=== PATIENT | male | born 1975 | race Caucasian/White ===

== ENCOUNTER 2016-06-04 17:38 | Emergency (ER) | payer OTHER ==
[2016-06-04] MEDS ORDERED: Albuterol/Ipratropium NEB.SOL* Albuterol 2.5 MG/Ipratropium 0.5 MG 3 ML ONE (17:58)
[2016-06-04] MEDS ORDERED: Albuterol/Ipratropium NEB.SOL* Albuterol 2.5 MG/Ipratropium 0.5 MG 3 ML INH ONE (18:09)
--- NOTE | 2016-06-04 18:36 | UC ---
Respiratory Complaint HPI - HPI Summary HPI Summary: The patient comes in today for: 1. Shortness of breath: Onset: 2-3 days ago. Palliative/provocative: Inhaler he had at home (albuterol) helped. Quality: Cough, barky Region: Lungs Severity: Just before he came in dyspnea was 7/10 but now after nebulizer 4/10 Time: Constant. Associated symptoms: Chest pain: None. Dyspnea: Present. Lung disease: Bronchitis, but he denies any asthma or emphysema. HE was given albuterol inhaler back in February of 2016. He had a bronchitis and he got a "Z-pack and albuterol inhaler." He got a breathing treatment also. He did not get any oxygen. Heart disease, but message from the nurse was that he had cardiomyopathy. Sleep apnea: Present. He has not seen anyone for this "not for a while." He has not been on any treatment (i.e. CPAP) at home. He has not had any echocardiogram. Regular PCP: Dr. Guerrero. His last visit was in November. He has an appointment on the of this month. 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 He denies seeing any other providers such as specialists. Cough production: Yellow green. Rhinitis: Yellow/green Upper tooth pain: None Sinus pressure: Frontal and maxillary. Oxygen at home: None. * - History of Current Complaint Chief Complaint: UCRespiratory Stated Complaint: URI Time Seen by Provider: 06/04/16 18:20 Hx Obtained From: Patient, Family/Emissions Testing And Repair Technician - Allergies/Home Medications Allergies/Adverse Reactions: Allergies Allergy/AdvReac Type Severity Reaction Status Date / Time MARGIE Allergy Severe Swelling Uncoded 06/04/16 17:48 PMH/Surg Hx/FS Hx/Imm Hx Previously Healthy: No Endocrine History Of: Reports: Diabetes - DM x 3 years. On Rx, FBS 75-110, Denies: Thyroid Disease Cardiovascular History Of: Denies: Cardiac Disorders, Hypertension, Pacemaker/ICD, Myocardial Infarction , Congestive Heart Failure, Atrial Fibrillation, Deep Vein Thrombosis, Bleeding Disorders Respiratory History Of: Reports: Bronchitis - Last dx Feb--used albuteral MDI then, but not after. Denies: COPD, Asthma GI/ History Of: Denies: Gastroesophageal Reflux, Ulcer, Gastrointestinal Bleed, Gall Bladder Disease, Kidney Stones, Diverticulitis, Renal Disease, Urosepsis Neurological History Of: Denies: TIA, CVA, Dementia, Seizures, Migraine Psychological History Of: Reports: Depression Denies: Anxiety, Bipolar Disorder, Schizophrenia, Post Traumatic Stress Disorder Cancer History Of: Denies: Lung Cancer, Colorectal Cancer, Breast Cancer, Prostate Cancer, Cervical Cancer Other History Of: Anticoagulant Therapy Negative For: HIV, Hepatitis B, Hepatitis C - Surgical History Surgical History: None - Family History Known Family History: Positive: Cardiac Disease, Hypertension, Diabetes, Seizure Disorder - Social History Occupation: Employed Full-time Alcohol Use: Rare Substance Use Type: Marijuana Substance Use Comment - Amount & Last Used: 11/22/13 Smoking Status (MU): Current Every Day Smoker Type: Cigarettes Amount Used/How Often: 1 PPD Household Exposure Type: Cigarettes - Immunization History Most Recent Influenza Vaccination: never Most Recent Tetanus Shot: doesn't remember Most Recent Pneumonia Vaccination: never Review of Systems Constitutional: Fever - He c/o fever, 100.2 at home. Skin: Negative Eyes: Negative ENT: Nasal Discharge Respiratory: Shortness Of Breath, Cough Gastrointestinal: Diarrhea - Diarrhea today: two stools today, mucous in the first one. Genitourinary: Negative All Other Systems Reviewed And Are Negative: Yes Physical Exam Triage Information Reviewed: Yes Appearance: Well-Appearing, Well-Nourished, Obese Vital Signs: Initial Vital Signs Temp 97.9 F 06/04/16 17:43 Pulse 79 06/04/16 17:43 Resp 24 06/04/16 17:43 BP 136/89 06/04/16 17:43 Pulse Ox 94 06/04/16 17:43 Vital Signs Reviewed: Yes Eyes: Positive: Conjunctiva Clear ENT: Positive: Hearing grossly normal, Pharyngeal erythema, Other: - Mallampati score: 2. Negative: Nasal congestion, Nasal drainage, TM bulging, TM dull, TM red, Tonsillar swelling, Tonsillar exudate Dental: Negative: Gross Decay/Caries @, Dental Fracture @ Neck: Positive: Supple, Nontender, No Lymphadenopathy. Negative: Nuchal Rigidity Respiratory: Positive: Chest non-tender, No respiratory distress, No accessory muscle use - It was difficult to assess accessory muscle use due to increased adipose tissue overlying chest wall., Wheezing - Scattered, and end expiratory.. Negative: Crackles Cardiovascular: Positive: RRR, No Murmur Abdomen Description: Positive: Nontender, No Organomegaly, Soft. Negative: Distended, Guarding Musculoskeletal: Positive: Strength Intact, ROM Intact Neurological: Positive: Alert, Muscle Tone Normal Psychological: Positive: Age Appropriate Behavior, Consolable Skin: Positive: Other - He has hyperpigmented, and cyanotic lower, edematous legs, but he states that this is his normal.. Negative: rashes UC Diagnostic Evaluation - Laboratory O2 Sat by Pulse Oximetry: 94 - Radiology Xray Interpretation: Positive (See Comments) - MILD PULMONARY INTERSTITIAL EDEMA Radiology Interpretation Completed By: Radiologist Respiratory Course/Dx - Course Course Of Treatment: Patient states that he feels much better after his DuoNeb treatment and that he feels well enough to go home. However, I told him I was concerned about his breathing and lung sounds and suggested a CXR. The radiologist read it as mild pulmonary edema. I mentioned this to the patient and that a simple upper respiratory infection with bronchospasm should not have pulmonary edema found on CXR. And therefore, I suggested that he go to the ER for a more in-depth evaluation. However, he did not want to do that tonight and said that he would consider it in the AM. He did want an antibiotic and bronchodilator, steroid inhaler and antibiotics. - Differential Dx/Diagnosis Provider Diagnoses: Dyspnea. Mild pulmonary edema. bronchospasm Discharge - Discharge Plan Condition: Stable Disposition: AGAINST MEDICAL ADVICE Patient Education Materials: Heart Failure (ED), Dyspnea (ED), Bronchospasm (ED ) Forms: *Work Release Referrals: Abdelrahman ROE,Cehvy Garcia [Primary Care Provider] - As Soon As Possible (If you are not going to the ER at this time, please see your primary care provider as soon as you can. If you get worse, please re-consider going to the ER. )
[2016-06-04 19:22] VITALS: BP 120/78
--- NOTE | 2016-06-04 19:28 | RAD ---
HISTORY: Shortness of breath, history of cardiomyopathy COMPARISONS: November 26, 2013 VIEWS: 2: Frontal dual-energy and lateral views of the chest. FINDINGS: CARDIOMEDIASTINAL SILHOUETTE: The cardiomediastinal silhouette is normal. LUCY: The lucy are normal. PLEURA: The costophrenic angles are sharp. No pleural abnormalities are noted. LUNG PARENCHYMA: There is mild coarse reticular pattern with prominence of the central pulmonary vasculature. ABDOMEN: The upper abdomen is clear. There is no subphrenic gas. BONES AND SOFT TISSUES: No bone or soft tissue abnormalities are noted. OTHER: None. IMPRESSION: MILD PULMONARY INTERSTITIAL EDEMA
--- NOTE | 2016-06-05 14:47 | UC ---
Progress - Progress Note Progress Note: The patient was called today to see how well he was doing. He did not answer my call, but a message was left that if he is having any problems or other issues, he is welcome to come back to see us.
== END 2016-06-04 20:02 | disposition left against medical advice (07) ==
LOC: UCEAST 17:38
DX: R06.00 Dyspnea, unspecified (principal); J81.1 Chronic pulmonary edema; J98.01 Acute bronchospasm; F17.210 Nicotine dependence, cigarettes, uncomplicated
CPT/HCPCS: 71020; 93005; 99212; A9270-GY; G0463

== ENCOUNTER 2016-09-15 22:01 | Emergency (ER) | payer OTHER ==
[2016-09-15 22:09] VITALS: BP 169/97
[2016-09-15] MEDS ORDERED: Clindamycin 900 MG IVPREMIX(* 900 MG/50 ML SDV IV ONE (23:18)
[2016-09-15] MEDS ORDERED: HYDROcodone/ACETAMIN 5-325 MG* 1 TAB PO ONE (23:18)
[2016-09-15 23:40] LABS: Hematocrit 48 % (42-52); Hemoglobin 16.5 g/dl (14.0-18.0); Mean Corpuscular HGB Conc 34 g/dl (31-36); Mean Corpuscular Hemoglobin 29 pg (27-31); Mean Corpuscular Volume 85 fL (80-94); Mean Platelet Volume 8 um3 (7.4-10.4); Red Cell Distribution Width 14 % (10.5-15); White Blood Count 11.9 10^3/ul (3.5-10.8)
[2016-09-15 23:58] LABS: Albumin 3.5 g/dL (3.2-5.2); BUN/Creatinine Ratio 12.9 (8-20); EGFR Non-African American 123.7 (>60); Globulin 3.2 g/dL (2-4); Potassium 3.8 mmol/L (3.5-5.0); Total Bilirubin 0.7 mg/dL (0.2-1.0); Total Protein 6.7 g/dL (6.4-8.9)
[2016-09-16] MEDS ORDERED: Insulin REGULAR(*) 1 UNITS UNIT SUBCUT ONE (00:49)
--- NOTE | 2016-09-16 06:46 | ED ---
Sherine Hummel Anna, scribed for Reji Park MD on 09/15/16 at 2300 . GI/ HPI - HPI Summary HPI Summary: Patient is a 41 y/o male coming to [facility] presenting with the gradual onset of left-sided groin pain that began two days ago. He reports a sore area which began looking like a pimple but has grown in size and worsened in pain. He describes the severity of the pain as 9/10. Denies known hernias. He does not report digging in or otherwise bothering the sore. He reports feeling warm and having some diaphoresis and nausea. Denies emesis. He put Abx cream on the area but did not attempt drainage. The area was not draining when he took his shower this morning. The pain is exacerbated by movement. His history is significant for DM. Patient medications were reviewed this visit. - History of Current Complaint Chief Complaint: EDGeneral Time Seen by Provider: 09/15/16 22:16 Stated Complaint: INFECTION BY PELVIS/ GENERAL Hx Obtained From: Patient, Family/Locomotive Driver - accompanied by Onset/Duration: Started Days Ago, Still Present Pain Intensity: 9 - Allergy/Home Medications Allergies/Adverse Reactions: Allergies Allergy/AdvReac Type Severity Reaction Status Date / Time BURDOCK Allergy Severe Swelling Uncoded 06/04/16 17:48 PMH/Surg Hx/FS Hx/Imm Hx Endocrine/Hematology History: Reports: Hx Anticoagulant Therapy, Hx Diabetes - DM x 3 years. On Rx, FBS 75-110, Denies: Hx Thyroid Disease Cardiovascular History: Denies: Hx Congestive Heart Failure, Hx Deep Vein Thrombosis, Hx Hypertension , Hx Myocardial Infarction, Hx Pacemaker/ICD Respiratory History: Reports: Hx Sleep Apnea Denies: Hx Asthma, Hx Chronic Obstructive Pulmonary Disease (COPD), Hx Lung Cancer GI History: Denies: Hx Gall Bladder Disease, Hx Gastrointestinal Bleed, Hx Ulcer, Hx Urosepsis History: Denies: Hx Kidney Stones, Hx Renal Disease Musculoskeletal History: Reports: Hx Back Problems Neurological History: Denies: Hx Dementia, Hx Migraine, Hx Seizures, Hx Transient Ischemic Attacks (TIA) Psychiatric History: Reports: Hx Depression Denies: Hx Anxiety, Hx Schizophrenia, Hx Bipolar Disorder - Immunization History Date of Tetanus Vaccine: utd Date of Influenza Vaccine: none Infectious Disease History: No Infectious Disease History: Denies: Hx Hepatitis, Hx Human Immunodeficiency Virus (HIV), Traveled Outside the [place] in Last 30 Days - Family History Known Family History: Positive: Cardiac Disease, Hypertension, Diabetes, Respiratory Disease, Seizure Disorder - Social History Lives: With Family Alcohol Use: Rare Substance Use Type: Reports: Marijuana Substance Use Comment - Amount & Last Used: 09/14/16 Hx Tobacco Use: Yes Smoking Status (MU): Current Every Day Smoker Type: Cigarettes Amount Used/How Often: 1 PPD Review of Systems Positive: Skin Diaphoresis, Other - feeling warm Negative: Erythema Negative: Sore Throat Negative: Chest Pain Negative: Shortness Of Breath, Cough Positive: Nausea. Negative: Abdominal Pain, Vomiting, Diarrhea Positive: pain. Negative: dysuria, hematuria Negative: Myalgia, Edema Negative: Rash Neurological: Other - Denies dizziness All Other Systems Reviewed And Are Negative: Yes Physical Exam - Summary Physical Exam Summary: Constitutional: Well-developed, Well-nourished, Alert. (-) Distressed Skin: Fluctuant area to the left of his synthesis pubis. Warm, Dry HENT: Normocephalic; Atraumatic Eyes: Conjunctiva normal Neck: Musculoskeletal ROM normal neck. (-) JVD, (-) Stridor, (-) Tracheal deviation Cardio: Rhythm regular, rate normal, Heart sounds normal; Intact distal pulses; The pedal pulses are 2+ and symmetric. Radial pulses are 2+ and symmetric. (-) Murmur Pulmonary/Chest wall: Effort normal. (-) Respiratory distress, (-) Wheezes, (-) Rales Abd: Soft, (-) Tenderness, (-) Distension, (-) Guarding, (-) Rebound Musculoskeletal: (-) Edema Lymph: (-) Cervical adenopathy Neuro: Alert, Oriented x3 Psych: Mood and affect Normal Triage Information Reviewed: Yes Vital Signs On Initial Exam: Initial Vitals Temp Pulse Resp BP Pulse Ox 99.5 F 105 20 169/97 97 09/15/16 22:04 09/15/16 22:04 09/15/16 22:04 09/15/16 22:04 09/15/16 22:04 Vital Signs Reviewed: Yes - [place] Coma Scale Coma Scale Total: 15 Procedures - Incision and Drainage Site: left of synthesis pubis - moderate pus Anesthesia: Local Instrument(s): Scalpel - 11 blade Packing: Other - 1/4 inch packing Diagnostics - Vital Signs Vital Signs Temp Pulse Resp BP Pulse Ox 09/15/16 22:13 99.5 F 105 18 169/97 95 09/15/16 22:04 99.5 F 105 20 169/97 97 - Laboratory Result Diagrams: 09/15/16 23:25 09/15/16 23:25 Lab Statement: Any lab studies that have been ordered have been reviewed, and results considered in the medical decision making process. GIGU Course/Dx - Course Assessment/Plan: Patient is a 41 y/o male coming to [facility] presenting with the gradual onset of left-sided groin pain that began two days ago. Incision and drainage was performed. Labs reveal WBC of 11.9 and glucose of 330. Patient will be discharged home with a prescription for Clindamycin and Tramadol. Patient and family are agreeable. - Diagnoses Provider Diagnoses: Groin abscess, Hyperglycemia Discharge - Discharge Plan Condition: Stable Disposition: HOME Prescriptions: Clindamycin CAP* [Cleocin 150 MG CAP*] 300 mg PO QID #40 cap traMADol TAB* [Ultram*] 25 mg PO Q6HR PRN #10 tab MDD 4 PRN Reason: Pain - Moderate To Severe Patient Education Materials: Clindamycin (By mouth), Tramadol (By mouth), Abscess (ED), Diabetic Hyperglycemia (ED) Referrals: Chevy Quick MD [Primary Care Provider] - Additional Instructions: Follow up with primary care provider within 48 hours. Check blood sugar levels three times a day. RETURN TO THE EMERGENCY DEPARTMENT FOR CHANGING OR WORSENING SYMPTOMS. The documentation as recorded by the Sherine maurer Anna accurately reflects the service I personally performed and the decisions made by Xavier calderon Jerry, MD.
== END 2016-09-16 01:51 | disposition home or self-care (01) ==
LOC: ED 22:01
DX: L02.214 Cutaneous abscess of groin (principal); E11.65 Type 2 diabetes mellitus with hyperglycemia; Z79.01 Long term (current) use of anticoagulants; F17.210 Nicotine dependence, cigarettes, uncomplicated
CPT/HCPCS: 10060; 36415; 80053; 83605; 85025; 85610; 85730; 87040; 96372; 96374; 99282

== ENCOUNTER 2016-09-19 12:03 | Emergency (ER) | payer OTHER | END 2016-09-19 13:13 | disposition left against medical advice (07) | LOC: UCEAST 12:03 | DX: T14.8 Other injury of unspecified body region (principal); X58.XXXD Exposure to other specified factors, subsequent encounter; Z53.21 Procedure and treatment not carried out due to patient leaving prior to being seen by health care provider ==

== ENCOUNTER 2017-06-10 18:59 | Emergency (ER) | payer OTHER ==
--- NOTE | 2017-06-10 21:29 | RAD ---
INDICATION: Chest pain COMPARISON: Chest x-ray dated June 04, 2016 TECHNIQUE: Single AP view of the chest was obtained. FINDINGS: The heart and mediastinum exhibit normal size and contour. Similar to the prior chest x-ray there is fullness of the pulmonary vasculature with diffuse mild reticulonodular density. Visualized bones are normal for the patient's age. IMPRESSION: DEPENDING ON THE CLINICAL SETTING CHEST X-RAY FINDINGS COULD BE SEEN WITH MILD PULMONARY EDEMA OR INCREASED PARENCHYMAL DENSITY RELATED TO VIRAL PNEUMONIA.
[2017-06-10 21:31] LABS: ABS Basophils 0.1 10^3/ul (0-0.2); ABS Eosinophils 0.2 10^3/ul (0-0.6); ABS Lymphocytes 2.8 10^3/ul (1.0-4.8); ABS Monocytes 0.6 10^3/ul (0-0.8); ABS Neutrophils 6.7 10^3/ul (1.5-7.7); ABS Nucleated RBC 0 10^3/ul; Eosinophil % 2.1 % (0-6); Hematocrit 49 % (42-52); Hemoglobin 16.7 g/dl (14.0-18.0); Lymphocyte % 27.1 % (25-47); Mean Corpuscular HGB Conc 34 g/dl (31-36); Mean Corpuscular Hemoglobin 30 pg (27-31); Mean Corpuscular Volume 86 fL (80-94); Mean Platelet Volume 8 um3 (7.4-10.4); Nucleated Red Blood Cells % 0.1; Platelet Count 279 10^3/ul (150-450); Red Blood Count 5.65 10^6/ul (4.0-5.4); Red Cell Distribution Width 14 % (10.5-15); White Blood Count 10.5 10^3/ul (3.5-10.8)
[2017-06-10 21:48] LABS: EGFR Non-African American 136.5 (>60)
[2017-06-10 21:58] LABS: INR 0.87 (0.77-1.02)
[2017-06-10] MEDS ORDERED: Ketorolac INJ* 60 MG/2 ML VIAL IM ONE (23:02)
[2017-06-10] MEDS ORDERED: oxyCODONE/Acetamin 5/325 MG* TAB PO ONE (23:03)
[2017-06-10] MEDS ORDERED: Insulin REGULAR(*) 1 UNITS UNIT SUBCUT ONE (23:03)
--- NOTE | 2017-06-11 00:14 | ED ---
Avinash Hummel Thomas, scribed for Leland Trevizo MD on 06/10/17 at 2324 . HPI Chest Pain - HPI Summary HPI Summary: The patient is a 42 year old male presenting with chest pain that has been increasing over the last two weeks. The pain radiates to his neck. He describes a sensation of a pulled muscle. The pain is worse when he moves and breathes deeply. He reports he is a little short of breath. He denies any known trauma. - History of Current Complaint Chief Complaint: EDChestWallPain Time Seen by Provider: 06/10/17 22:53 Hx Obtained From: Patient Onset/Duration: Started Weeks Ago - 2, Atraumatic, Still Present Timing: Constant Initial Severity: Mild Current Severity: Severe Pain Intensity: 9 Pain Scale Used: 0-10 Numeric Chest Pain Radiates: Yes Chest Pain Radiates To:: Neck Aggravating Factor(s): Movement, Deep Breaths Alleviating Factor(s): Nothing Associated Signs and Symptoms: Positive: Chest Pain, Shortness of Breath - a little, Fever - Allergy/Home Medications Allergies/Adverse Reactions: Allergies Allergy/AdvReac Type Severity Reaction Status Date / Time BURDOCK Allergy Severe Swelling Uncoded 06/04/16 17:48 PMH/Surg Hx/FS Hx/Imm Hx Endocrine/Hematology History: Reports: Hx Anticoagulant Therapy, Hx Diabetes - DM x 3 years. On Rx, FBS 75-110, Denies: Hx Thyroid Disease Cardiovascular History: Denies: Hx Congestive Heart Failure, Hx Deep Vein Thrombosis, Hx Hypertension , Hx Myocardial Infarction, Hx Pacemaker/ICD Respiratory History: Reports: Hx Sleep Apnea Denies: Hx Asthma, Hx Chronic Obstructive Pulmonary Disease (COPD), Hx Lung Cancer GI History: Denies: Hx Gall Bladder Disease, Hx Gastrointestinal Bleed, Hx Ulcer, Hx Urosepsis History: Denies: Hx Kidney Stones, Hx Renal Disease Musculoskeletal History: Reports: Hx Back Problems Neurological History: Denies: Hx Dementia, Hx Migraine, Hx Seizures, Hx Transient Ischemic Attacks (TIA) Psychiatric History: Reports: Hx Depression Denies: Hx Anxiety, Hx Schizophrenia, Hx Bipolar Disorder - Immunization History Date of Tetanus Vaccine: utd Date of Influenza Vaccine: none Infectious Disease History: No Infectious Disease History: Denies: Hx Hepatitis, Hx Human Immunodeficiency Virus (HIV), Traveled Outside the [place] in Last 30 Days - Family History Known Family History: Positive: Cardiac Disease, Hypertension, Diabetes, Respiratory Disease, Seizure Disorder - Social History Alcohol Use: Rare Substance Use Type: Reports: Marijuana Substance Use Comment - Amount & Last Used: 09/14/16 Hx Tobacco Use: Yes Smoking Status (MU): Current Every Day Smoker Type: Cigarettes Amount Used/How Often: 1 PPD Review of Systems Positive: Fever Positive: Chest Pain Positive: Shortness Of Breath - a little All Other Systems Reviewed And Are Negative: Yes Physical Exam - Summary Physical Exam Summary: VITAL SIGNS: Reviewed. GENERAL: Patient is a morbidly obese MALE who is lying comfortable in the stretcher. Patient is not in any acute respiratory distress. HEAD AND FACE: No signs of trauma. No ecchymosis, hematomas or skull depressions. No sinus tenderness. EYES: PERRLA, EOMI x 2, No injected conjunctiva, no nystagmus. EARS: Hearing grossly intact. Ear canals and tympanic membranes are within normal limits. MOUTH: Oropharynx within normal limits. NECK: Supple, trachea is midline, no adenopathy, no JVD, no carotid bruit, no c- spine tenderness, neck with full ROM. CHEST: Symmetric. He has diffuse tenderness in the upper chest wall on both sides. LUNGS: Clear to auscultation bilaterally. No wheezing or crackles. CVS: Regular rate and rhythm, S1 and S2 present, no murmurs or gallops appreciated. ABDOMEN: Soft, non-tender. No signs of distention. No rebound no guarding, and no masses palpated. Bowel sounds are normal. EXTREMITIES: FROM in all major joints, no edema, no cyanosis or clubbing. NEURO: Alert and oriented x 3. No acute neurological deficits. Speech is normal and follows commands. SKIN: Dry and warm Triage Information Reviewed: Yes Vital Signs On Initial Exam: Initial Vitals Temp Pulse Resp BP Pulse Ox 100.2 F 104 16 137/66 96 06/10/17 19:02 06/10/17 19:02 06/10/17 19:02 06/10/17 19:02 06/10/17 19:02 Vital Signs Reviewed: Yes Diagnostics - Vital Signs Vital Signs Temp Pulse Resp BP Pulse Ox 06/10/17 23:19 72 16 132/80 96 06/10/17 21:03 98.7 F 94 131/66 95 06/10/17 19:02 100.2 F 104 16 137/66 96 - Laboratory Lab Results: Lab Results 06/10/17 06/10/17 06/10/17 Range/Units 21:10 21:10 21:10 WBC 10.5 (3.5-10.8) 10^3/ul RBC 5.65 H (4.0-5.4) 10^6/ul Hgb 16.7 (14.0-18.0) g/dl Hct 49 (42-52) % MCV 86 (80-94) fL MCH 30 (27-31) pg MCHC 34 (31-36) g/dl RDW 14 (10.5-15) % Plt Count 279 (150-450) 10^3/ul MPV 8 (7.4-10.4) um3 Neut % (Auto) 63.6 (38-83) % Lymph % (Auto) 27.1 (25-47) % Sequoyah % (Auto) 6.1 (1-9) % Eos % (Auto) 2.1 (0-6) % Baso % (Auto) 1.1 (0-2) % Absolute Neuts (auto) 6.7 (1.5-7.7) 10^3/ul Absolute Lymphs (auto) 2.8 (1.0-4.8) 10^3/ul Absolute Monos (auto) 0.6 (0-0.8) 10^3/ul Absolute Eos (auto) 0.2 (0-0.6) 10^3/ul Absolute Basos (auto) 0.1 (0-0.2) 10^3/ul Absolute Nucleated RBC 0 10^3/ul Nucleated RBC % 0.1 INR (Anticoag Therapy) (0.77-1.02) APTT (26.0-36.3) seconds D-Dimer, Quantitative (Less Than 230) ng/mL Sodium 133 (133-145) mmol/L Potassium 4.2 (3.5-5.0) mmol/L Chloride 100 L (101-111) mmol/L Carbon Dioxide 26 (22-32) mmol/L Anion Gap 7 (2-11) mmol/L BUN 10 (6-24) mg/dL Creatinine 0.64 L (0.67-1.17) mg/dL Est GFR ( Amer) 175.5 (>60) Est GFR (Non-Af Amer) 136.5 (>60) BUN/Creatinine Ratio 15.6 (8-20) Glucose 310 H (70-100) mg/dL Lactic Acid 2.1 H* (0.5-2.0) mmol/L Calcium 8.8 (8.6-10.3) mg/dL Magnesium 2.1 (1.9-2.7) mg/dL Total Bilirubin 0.40 (0.2-1.0) mg/dL AST 13 (13-39) U/L ALT 19 (7-52) U/L Alkaline Phosphatase 49 (34-104) U/L Total Creatine Kinase 38 (10-223) U/L Troponin I 0.00 (<0.04) ng/mL Total Protein 6.7 (6.4-8.9) g/dL Albumin 3.7 (3.2-5.2) g/dL Globulin 3.0 (2-4) g/dL Albumin/Globulin Ratio 1.2 (1-3) 06/10/17 Range/Units 21:10 WBC (3.5-10.8) 10^3/ul RBC (4.0-5.4) 10^6/ul Hgb (14.0-18.0) g/dl Hct (42-52) % MCV (80-94) fL MCH (27-31) pg MCHC (31-36) g/dl RDW (10.5-15) % Plt Count (150-450) 10^3/ul MPV (7.4-10.4) um3 Neut % (Auto) (38-83) % Lymph % (Auto) (25-47) % Sequoyah % (Auto) (1-9) % Eos % (Auto) (0-6) % Baso % (Auto) (0-2) % Absolute Neuts (auto) (1.5-7.7) 10^3/ul Absolute Lymphs (auto) (1.0-4.8) 10^3/ul Absolute Monos (auto) (0-0.8) 10^3/ul Absolute Eos (auto) (0-0.6) 10^3/ul Absolute Basos (auto) (0-0.2) 10^3/ul Absolute Nucleated RBC 10^3/ul Nucleated RBC % INR (Anticoag Therapy) 0.87 (0.77-1.02) APTT 32.4 (26.0-36.3) seconds D-Dimer, Quantitative < 200 (Less Than 230) ng/mL Sodium (133-145) mmol/L Potassium (3.5-5.0) mmol/L Chloride (101-111) mmol/L Carbon Dioxide (22-32) mmol/L Anion Gap (2-11) mmol/L BUN (6-24) mg/dL Creatinine (0.67-1.17) mg/dL Est GFR ( Amer) (>60) Est GFR (Non-Af Amer) (>60) BUN/Creatinine Ratio (8-20) Glucose (70-100) mg/dL Lactic Acid (0.5-2.0) mmol/L Calcium (8.6-10.3) mg/dL Magnesium (1.9-2.7) mg/dL Total Bilirubin (0.2-1.0) mg/dL AST (13-39) U/L ALT (7-52) U/L Alkaline Phosphatase (34-104) U/L Total Creatine Kinase (10-223) U/L Troponin I (<0.04) ng/mL Total Protein (6.4-8.9) g/dL Albumin (3.2-5.2) g/dL Globulin (2-4) g/dL Albumin/Globulin Ratio (1-3) Result Diagrams: 06/10/17 21:10 06/10/17 21:10 Lab Statement: Any lab studies that have been ordered have been reviewed, and results considered in the medical decision making process. - Radiology CXR Xray Interpretation: Positive (See Comments) - DEPENDING ON THE CLINICAL SETTING CHEST X-RAY FINDINGS COULD BE SEEN WITH MILD PULMONARY EDEMA OR INCREASED PARENCHYMAL DENSITY RELATED TO VIRAL PNEUMONIA. Dr. Trevizo has reviewed this report. Radiology Interpretation Completed By: Radiologist - EKG 19:04 Cardiac Rate: NL EKG Rhythm: Sinus Rhythm - at 97 BPM EKG Interpretation: Normal intervals, normal axis, no acute ischemic change Chest Pain Course/Dx - Course Assessment/Plan: The patient is a 42 year old male presenting with chest pain that has been increasing over the last two weeks. In the ED course, the patient was given insulin, Percocet, and Toradol. Bloodwork was obtained. EKG and CXR were obtained. The patient is discharged home with diagnosis of chest wall pain. He will follow up with primary care. - Diagnoses Provider Diagnoses: Chest wall pain Discharge - Discharge Plan Condition: Stable Disposition: HOME Prescriptions: oxyCODONE/Acetamin 5/325 MG* [Percocet 5/325 TAB*] 1 tab PO Q6H PRN #14 tab MDD 4 PRN Reason: Pain Patient Education Materials: Chest Wall Pain (ED) Referrals: Abdelrahman ROE,Chevy Garcia [Primary Care Provider] - 3 Days Additional Instructions: Follow up with your primary care physician in three days. Return to the emergency department for any new or worsening symptoms. The documentation as recorded by the Avinash maurer Thomas accurately reflects the service I personally performed and the decisions made by , Leland Trevizo MD.
[2017-06-11 02:30] VITALS: BP 136/80
== END 2017-06-11 00:55 | disposition home or self-care (01) ==
LOC: ED 18:59
DX: R07.89 Other chest pain (principal); R06.02 Shortness of breath; R50.9 Fever, unspecified; Z79.01 Long term (current) use of anticoagulants; E11.9 Type 2 diabetes mellitus without complications; F17.210 Nicotine dependence, cigarettes, uncomplicated
CPT/HCPCS: 36415; 71045; 80053; 82550; 83605; 83735; 84484; 85025; 85379; 85610; 85730; 93005; 96372; 99283; A9270-GY; J1885

== ENCOUNTER 2017-08-23 00:27 | Emergency (ER) | payer OTHER ==
[2017-08-23 02:01] LABS: Hematocrit 49 % (42-52); Hemoglobin 16.9 g/dl (14.0-18.0); Mean Corpuscular HGB Conc 35 g/dl (31-36); Mean Corpuscular Hemoglobin 29 pg (27-31); Mean Corpuscular Volume 84 fL (80-94); Mean Platelet Volume 7.7 um3 (7.4-10.4); Platelet Count 232 10^3/ul (150-450); Red Cell Distribution Width 14 % (10.5-15); White Blood Count 8.7 10^3/ul (3.5-10.8)
[2017-08-23] MEDS ORDERED: Diazepam TAB(*) 5 MG PO ONE (02:16)
[2017-08-23] MEDS ORDERED: Ketorolac INJ* 60 MG/2 ML VIAL IM ONE (02:16)
[2017-08-23 02:18] LABS: EGFR Non-African American 136.5 (>60)
[2017-08-23 02:34] LABS: Monocytes % 9 % (0-7)
[2017-08-23 02:43] LABS: Urine Appearance Clear; Urine Blood Negative (Negative); Urine Color Yellow; Urine Ketones Trace (Negative); Urine Protein Negative (Negative); Urine Specific Gravity 1.032 (1.010-1.030); Urine Urobilinogen Negative (Negative)
[2017-08-23] MEDS ORDERED: cefTRIAXone VIAL(*) 1,000 MG VIAL IM ONE (03:24)
[2017-08-23 03:50] VITALS: BP 130/69
--- NOTE | 2017-08-23 05:00 | ED ---
Andrea Hummel Rebecca, scribed for Javier Vicente MD on 08/23/17 at 0206 . Abdominal Pain/Male - HPI Summary HPI Summary: Pt is a 42 y/o M who presents to ED c/o R flank pain. Sx have been present for about 2-3 days and have been intermittent since onset. Pain is sharp and ranked 8/10 on triage. Additionally c/o nausea, difficulty urinating, and dysuria that is described as a discomfort. Denies vomiting, hematuria, and penile discharge. PMHx DM - BG has been below 150 and takes PO medication. - History of Current Complaint Chief Complaint: EDFlankPain Stated Complaint: ABD PAIN Time Seen by Provider: 08/23/17 01:58 Hx Obtained From: Patient Onset/Duration: Lasting Days - 2-3 days, Still Present Timing: Intermittent Severity Currently: Severe Pain Intensity: 8 Pain Scale Used: 0-10 Numeric Location: Flank - Right Character: Sharp Associated Signs And Symptoms: Positive: Nausea. Negative: Vomiting, Penile Discharge - Allergies/Home Medications Allergies/Adverse Reactions: Allergies Allergy/AdvReac Type Severity Reaction Status Date / Time [place] Allergy Severe Swelling Uncoded 06/04/16 17:48 PMH/Surg Hx/FS Hx/Imm Hx Endocrine/Hematology History: Reports: Hx Anticoagulant Therapy, Hx Diabetes - DM x 3 years. On Rx, FBS 75-110, Denies: Hx Thyroid Disease Cardiovascular History: Denies: Hx Congestive Heart Failure, Hx Deep Vein Thrombosis, Hx Hypertension , Hx Myocardial Infarction, Hx Pacemaker/ICD Respiratory History: Reports: Hx Sleep Apnea Denies: Hx Asthma, Hx Chronic Obstructive Pulmonary Disease (COPD), Hx Lung Cancer GI History: Denies: Hx Gall Bladder Disease, Hx Gastrointestinal Bleed, Hx Ulcer, Hx Urosepsis History: Denies: Hx Kidney Stones, Hx Renal Disease Musculoskeletal History: Reports: Hx Back Problems Neurological History: Denies: Hx Dementia, Hx Migraine, Hx Seizures, Hx Transient Ischemic Attacks (TIA) Psychiatric History: Reports: Hx Depression Denies: Hx Anxiety, Hx Schizophrenia, Hx Bipolar Disorder - Immunization History Date of Tetanus Vaccine: utd Date of Influenza Vaccine: none Infectious Disease History: No Infectious Disease History: Denies: Hx Hepatitis, Hx Human Immunodeficiency Virus (HIV), Traveled Outside the [place] in Last 30 Days - Family History Known Family History: Positive: Cardiac Disease, Hypertension, Diabetes, Respiratory Disease, Seizure Disorder - Social History Alcohol Use: Rare Substance Use Type: Reports: Marijuana Substance Use Comment - Amount & Last Used: 09/14/16 Hx Tobacco Use: Yes Smoking Status (MU): Current Every Day Smoker Type: Cigarettes Amount Used/How Often: 1 PPD Review of Systems Positive: Nausea. Negative: Vomiting Positive: dysuria, flank pain - Right, other - Difficulty urinating. Negative: discharge, hematuria All Other Systems Reviewed And Are Negative: Yes Physical Exam - Summary Physical Exam Summary: Appearance: Well appearing, no pain distress, morbidly obese Skin: warm, dry, reflects adequate perfusion Head/face: normal Eyes: EOMI, KHADAR ENT: normal Neck: supple, non-tender Respiratory: CTA, breath sounds present Cardiovascular: RRR, pulses symmetrical Abdomen: non-tender, soft Bowel Sounds: present Musculoskeletal: strength/ROM intact, tenderness to palpation in the bilateral paralumbar musculature, no CVA tenderness Neuro: normal, sensory motor intact, A&Ox3 Triage Information Reviewed: Yes Vital Signs On Initial Exam: Initial Vitals Temp Pulse Resp BP Pulse Ox 96.7 F 105 24 114/77 94 08/23/17 00:28 08/23/17 00:28 08/23/17 00:28 08/23/17 00:28 08/23/17 00:28 Vital Signs Reviewed: Yes Diagnostics - Vital Signs Vital Signs Temp Pulse Resp BP Pulse Ox 08/23/17 00:28 96.7 F 105 24 114/77 94 - Laboratory Lab Results: Lab Results 08/23/17 08/23/17 08/23/17 Range/Units 01:40 01:40 01:40 WBC 8.7 (3.5-10.8) 10^3/ul RBC 5.80 H (4.0-5.4) 10^6/ul Hgb 16.9 (14.0-18.0) g/dl Hct 49 (42-52) % MCV 84 (80-94) fL MCH 29 (27-31) pg MCHC 35 (31-36) g/dl RDW 14 (10.5-15) % Plt Count 232 (150-450) 10^3/ul MPV 7.7 (7.4-10.4) um3 Neut % (Auto) Not Reportable Lymph % (Auto) Not Reportable Weston % (Auto) Not Reportable Eos % (Auto) Not Reportable Baso % (Auto) Not Reportable Absolute Neuts (auto) Not Reportable Absolute Lymphs (auto) Not Reportable Absolute Monos (auto) Not Reportable Absolute Eos (auto) Not Reportable Absolute Basos (auto) Not Reportable Absolute Nucleated RBC Not Reportable Immature Gran % 2 (0-9) % Neutrophils % 43 (38-83) % Band Neutrophils % 2 (0-8) % Lymphocytes % 31 (25-47) % Reactive Lymphs % 14 H (0-6) % Monocytes % 9 H (0-7) % Eosinophils % 1 (0-6) % Basophils % 0 (0-2) % Nucleated RBC % Not Reportable Abs Neuts (Manual) 3.7 (1.5-7.7) 10^3/ul Abs Lymphs (Manual) 2.7 (1.0-4.8) 10^3/ul Abs Monocytes (Manual) 0.8 (0-0.8) 10^3/ul Absolute Eos (Manual) 0.1 (0-0.6) 10^3/ul Abs Basophils (Manual) 0 (0-0.2) 10^3/ul Normal RBC Morphology Normal (Normal) Sodium 134 L (139-145) mmol/L Potassium 4.2 (3.5-5.0) mmol/L Chloride 98 L (101-111) mmol/L Carbon Dioxide 24 (22-32) mmol/L Anion Gap 12 H (2-11) mmol/L BUN 10 (6-24) mg/dL Creatinine 0.64 L (0.67-1.17) mg/dL Est GFR ( Amer) 175.5 (>60) Est GFR (Non-Af Amer) 136.5 (>60) BUN/Creatinine Ratio 15.6 (8-20) Glucose 314 H (70-100) mg/dL Lactic Acid 2.7 H* (0.5-2.0) mmol/L Calcium 8.9 (8.6-10.3) mg/dL Total Bilirubin 0.70 (0.2-1.0) mg/dL AST 38 (13-39) U/L ALT 57 H (7-52) U/L Alkaline Phosphatase 67 (34-104) U/L C-Reactive Protein 41.59 H (< 5.00) mg/L Total Protein 6.8 (6.4-8.9) g/dL Albumin 3.6 (3.2-5.2) g/dL Globulin 3.2 (2-4) g/dL Albumin/Globulin Ratio 1.1 (1-3) Lipase 136 H (11.0-82.0) U/L Urine Color Urine Appearance Urine pH (5-9) Ur Specific Rubicon (1.010-1.030) Urine Protein (Negative) Urine Ketones (Negative) Urine Blood (Negative) Urine Nitrate (Negative) Urine Bilirubin (Negative) Urine Urobilinogen (Negative) Ur Leukocyte Esterase (Negative) Urine WBC (Auto) (Absent) Urine RBC (Auto) (Absent) Ur Squamous Epith Cells (Absent) Urine Bacteria (Absent) Urine Glucose (Negative) 08/23/17 Range/Units 02:30 WBC (3.5-10.8) 10^3/ul RBC (4.0-5.4) 10^6/ul Hgb (14.0-18.0) g/dl Hct (42-52) % MCV (80-94) fL MCH (27-31) pg MCHC (31-36) g/dl RDW (10.5-15) % Plt Count (150-450) 10^3/ul MPV (7.4-10.4) um3 Neut % (Auto) Lymph % (Auto) Weston % (Auto) Eos % (Auto) Baso % (Auto) Absolute Neuts (auto) Absolute Lymphs (auto) Absolute Monos (auto) Absolute Eos (auto) Absolute Basos (auto) Absolute Nucleated RBC Immature Gran % (0-9) % Neutrophils % (38-83) % Band Neutrophils % (0-8) % Lymphocytes % (25-47) % Reactive Lymphs % (0-6) % Monocytes % (0-7) % Eosinophils % (0-6) % Basophils % (0-2) % Nucleated RBC % Abs Neuts (Manual) (1.5-7.7) 10^3/ul Abs Lymphs (Manual) (1.0-4.8) 10^3/ul Abs Monocytes (Manual) (0-0.8) 10^3/ul Absolute Eos (Manual) (0-0.6) 10^3/ul Abs Basophils (Manual) (0-0.2) 10^3/ul Normal RBC Morphology (Normal) Sodium (139-145) mmol/L Potassium (3.5-5.0) mmol/L Chloride (101-111) mmol/L Carbon Dioxide (22-32) mmol/L Anion Gap (2-11) mmol/L BUN (6-24) mg/dL Creatinine (0.67-1.17) mg/dL Est GFR ( Amer) (>60) Est GFR (Non-Af Amer) (>60) BUN/Creatinine Ratio (8-20) Glucose (70-100) mg/dL Lactic Acid (0.5-2.0) mmol/L Calcium (8.6-10.3) mg/dL Total Bilirubin (0.2-1.0) mg/dL AST (13-39) U/L ALT (7-52) U/L Alkaline Phosphatase (34-104) U/L C-Reactive Protein (< 5.00) mg/L Total Protein (6.4-8.9) g/dL Albumin (3.2-5.2) g/dL Globulin (2-4) g/dL Albumin/Globulin Ratio (1-3) Lipase (11.0-82.0) U/L Urine Color Yellow Urine Appearance Clear Urine pH 5.0 (5-9) Ur Specific Rubicon 1.032 H (1.010-1.030) Urine Protein Negative (Negative) Urine Ketones Trace A (Negative) Urine Blood Negative (Negative) Urine Nitrate Negative (Negative) Urine Bilirubin Negative (Negative) Urine Urobilinogen Negative (Negative) Ur Leukocyte Esterase Trace A (Negative) Urine WBC (Auto) 3+(>20/hpf) A (Absent) Urine RBC (Auto) 2+(6-10/hpf) A (Absent) Ur Squamous Epith Cells Present A (Absent) Urine Bacteria 1+ A (Absent) Urine Glucose 3+(>=500 mg/dl) A (Negative) Result Diagrams: 08/23/17 01:40 08/23/17 01:40 Lab Statement: Any lab studies that have been ordered have been reviewed, and results considered in the medical decision making process. - CT CT Abd/Pel CT Interpretation: No Acute Changes - Enlarged fatty liver. ED physician reviewed this radiology report. CT Interpretation Completed By: Radiologist Re-Evaluation - Re-Evaluation First Eval Re-Evaluation Time: 03:45 Change: Improved Comment: Discussed results and D/C plan with the pt. Pt is doing much better with pain completely resolved. Abdominal Pain Fem Course/Dx - Course Course Of Treatment: Patient with right-sided flank pain as well as urinary symptoms. No fever or vomiting. Urine is dirty and intramuscular Rocephin was given. Pain was gone with Toradol. No evidence for stone on CT. His sugars are modestly elevated which he will follow closely with his primary care physician. Patient discharged in good condition to follow up with his primary care physician. - Diagnoses Differential Diagnosis/HQI/PQRI: Appendicitis, Gall Bladder Disease, Pancreatitis, Renal Colic, Urinary Tract Infection Provider Diagnoses: UTI (urinary tract infection), Diabetes mellitus with hyperglycemia, Morbid obesity Discharge - Sign-Out/Discharge Documenting (check all that apply): Discharge/Admit/Transfer - Discharge - Discharge Plan Condition: Good Disposition: HOME Prescriptions: Ciprofloxacin HCl [Cipro] 500 mg PO BID #10 tablet Phenazopyridine 200 mg (NF) [Pyridium 200 MG tab *] 200 mg PO TID PRN #9 tab PRN Reason: burning with urination Patient Education Materials: Urinary Tract Infection in Men (ED) Forms: *Work Release Referrals: Abdelrahman ROE,Chevy Garcia [Primary Care Provider] - Additional Instructions: Drink plenty of fluids. Call your doctor in the morning for reevaluation. Your blood sugar was high. Avoid carbohydrates and drink lots of water. See her doctor about reevaluation of the blood sugar. Return with fever, increased back pain, vomiting, worse or other concerns as discussed. Tylenol, ibuprofen as needed for discomfort. - Billing Disposition and Condition Condition: GOOD Disposition: HOME The documentation as recorded by the Andrea maurer Rebecca accurately reflects the service I personally performed and the decisions made by me, Javier Vicente MD.
--- NOTE | 2017-08-23 07:59 | RAD ---
CLINICAL HISTORY: Flank pain, urinary difficulty COMPARISON: None TECHNIQUE: Multiple contiguous axial CT scans were obtained of the abdomen and pelvis, without intravenous contrast enhancement. Coronal and sagittal multiplanar reformations are submitted for review. Oral contrast was not administered. FINDINGS: The study is limited by the lack of intravenous contrast. This limits evaluation of the solid organs and vasculature. Evaluation is also limited by patient body habitus. LUNG BASES: The lung bases are clear. LIVER: The liver is diffusely low in attenuation compared to the spleen. There are no focal hepatic parenchymal masses. The liver measures 25 cm in long axis. BILE DUCTS: There is no intrahepatic or extrahepatic biliary dilatation. GALLBLADDER: The gallbladder is normal, without pericholecystic inflammatory change. PANCREAS: The pancreas is normal, without mass or ductal dilatation. SPLEEN: Normal in size and appearance. UPPER GI TRACT: Evaluation of the gastrointestinal tract is limited by incomplete gastric distention. The upper GI tract is unremarkable. SMALL BOWEL AND MESENTERY: The small bowel is normal in contour, course, and caliber. There is no obstruction or dilatation. COLON: The colon is normal in contour, course, caliber. There is no pericolonic inflammatory change. ADRENALS: Normal bilaterally. KIDNEYS: The kidneys are normal in shape, size, contour, and axis. There is no hydronephrosis or nephrolithiasis. BLADDER: The bladder is smooth in contour. PELVIC ORGANS: The prostate gland is normal. The seminal vesicles are symmetric. AORTA: The aorta is normal. IVC: Unremarkable LYMPH NODES: There is no lymphadenopathy by size criteria. ABDOMINAL WALL: There is no evidence for abdominal wall hernia. BONES AND SOFT TISSUES: Unremarkable OTHER: None IMPRESSION: HEPATOMEGALY WITH FATTY INFILTRATION OF THE LIVER. NO APPRECIABLE HYDRONEPHROSIS OR NEPHROLITHIASIS.
== END 2017-08-23 03:48 | disposition home or self-care (01) ==
LOC: ED 00:27
DX: N39.0 Urinary tract infection, site not specified (principal); E11.65 Type 2 diabetes mellitus with hyperglycemia; E66.01 Morbid (severe) obesity due to excess calories; F32.9 Major depressive disorder, single episode, unspecified; F17.210 Nicotine dependence, cigarettes, uncomplicated; Z79.01 Long term (current) use of anticoagulants
CPT/HCPCS: 36415; 74176; 80053; 81003; 81015; 83605; 83690; 85025; 86140; 87040; 87086; 96372; 99282; A9270-GY; J0696; J1885

== ENCOUNTER → 2017-08-27 09:43 | Emergency (ER) | payer OTHER ==
[~2017-08-27 09:43] MED LIST: Aspirin 81 mg CHEW TAB* 81 MG TAB.CHEW PO ONE; Aspirin EC TAB* 81 MG TAB.EC ONE; Ciprofloxacin 400MG IVPREMIX(* 400 MG/200 ML BAG IVPB ONE; HYDROmorphone INJ* 2 MG/ML CARPUJECT SYRINGE IV SLOW PU ONE; Iodixanol* (CONTRAST) 320 MG/ML 100 ML SDV IV ONE; NS 0.9% 1000 ML* 1,000 ML IV ONE; NS 0.9% 1000 ML* 2,000 ML IV ONE; Nitroglycerin TAB 0.4 MG* 0.4 MG TAB SL ONE
[2017-08-27 11:24] LABS: Hematocrit 46 % (42-52); Hemoglobin 15.4 g/dl (14.0-18.0); Mean Corpuscular HGB Conc 34 g/dl (31-36); Mean Corpuscular Hemoglobin 29 pg (27-31); Mean Corpuscular Volume 84 fL (80-94); Mean Platelet Volume 7.7 um3 (7.4-10.4); Platelet Count 238 10^3/ul (150-450); Red Cell Distribution Width 14 % (10.5-15); White Blood Count 9.3 10^3/ul (3.5-10.8)
[2017-08-27 11:28] LABS: ABS Basophils 0.1 10^3/ul (0-0.2); ABS Eosinophils 0 10^3/ul (0-0.6); ABS Lymphocytes 5.5 10^3/ul (1.0-4.8); ABS Monocytes 0.7 10^3/ul (0-0.8)
--- NOTE | 2017-08-27 11:52 | RAD ---
INDICATION: Chest pain COMPARISON: Most recent comparison chest x-ray is dated June 10, 2017 TECHNIQUE: Single AP portable view of the chest was obtained. FINDINGS: Image quality is compromised due to the relative inferiority of a portable chest x-ray. The heart and mediastinum exhibit normal size and contour. The lungs are grossly clear. There is no evidence of a large pleural effusion. Visualized bones are normal for the patient's age. IMPRESSION: No radiographic evidence for acute cardiopulmonary abnormality on this portable chest x-ray.
[2017-08-27 12:01] LABS: Monocytes % 9 % (0-7)
--- NOTE | 2017-08-27 12:54 | RAD ---
INDICATION: Urinary tract infection. Fever. RIGHT flank pain. Shortness of breath. Diaphoretic. COMPARISON: June 25, 2017 CT. TECHNIQUE: Multidetector CT images were obtained from the lung bases to the ischial tuberosities. Evaluation of the viscera is limited without IV contrast. Multiplanar reformation. REPORT: Morbid obesity limits image quality. Unremarkable visualized inferior thorax. Fatty infiltration of the liver with focal sparing at the gallbladder fossa. No focal hepatic lesions, or CT abnormality of the gallbladder, pancreas, or spleen evident. Negative for CT abnormality of the upper GI, small bowel, or diminutive appendix. Mild diverticulosis of the sigmoid colon without acute inflammatory change. Negative for ascites, free air, or hernias. Normal adrenal glands. Unremarkable unenhanced kidneys. Negative for nephrolithiasis, hydronephrosis, focal renal lesions, or perinephric inflammatory stranding. Unremarkable nondilated ureters and partially distended urinary bladder. Symmetric seminal vesicles. Unchanged mildly prominent 1.5 cm short axis portal caval lymph node. Negative for lymphadenopathy. Normal diameter abdominal aorta and iliac arteries. Physiologic distention of the IVC. Negative for suspicious osseous lesions. IMPRESSION: 1. Negative for urolithiasis or hydronephrosis. 2. Mild sigmoid diverticulosis without findings of diverticulitis. 3. Fatty infiltration of the liver.
--- NOTE | 2017-08-27 13:03 | RAD ---
INDICATION: Chest pain. Short of breath. Evaluate for pulmonary embolus. COMPARISON: Chest x-ray August 27, 2017 TECHNIQUE: Axial source images were obtained from the thoracic inlet to the hemidiaphragms following administration of 8 cc opaque 320. The examination was repeated with a second injection of the same dose due to poor pulmonary arterial contrast opacification. CT angiographic technique was utilized. Coronal and sagittal reconstructed images were acquired. This examination is limited despite an attempt with a repeat injection. There is a stated body weight of 450 pounds which necessarily limits this examination. CHEST FINDINGS: Neck/thyroid: The visualized neck to include the thyroid appear normal. Chest wall: There are no acute abnormalities of the bony thorax or chest wall. There is no supraclavicular, infraclavicular, or axillary lymphadenopathy. Lungs : There are no pulmonary parenchymal masses or infiltrates. The pulmonary interstitium appears normal. There are no endobronchial lesions. Cardiomediastinal structures: There is no evidence of a central pulmonary embolus although this examination is considered very limited. The heart is normal in size. There is no pericardial effusion. There is no evidence of aortic aneurysm or dissection. There is no mediastinal or hilar adenopathy. The esophagus appears normal. Pleura : There are no pleural-based masses or effusions. Other: None. IMPRESSION: VERY LIMITED EXAMINATION DUE TO PATIENT SIZE. NO CENTRAL PULMONARY EMBOLUS. LUNGS CLEAR. LIMITED NATURE OF THIS EXAMINATION DISCUSSED WITH THE EMERGENCY DEPARTMENT.
[2017-08-27 14:36] VITALS: BP 115/75
[2017-08-27 14:50] LABS: Urine Appearance Clear; Urine Blood Negative (Negative); Urine Color Amber; Urine Ketones 1+ (Negative); Urine Protein Negative (Negative); Urine Specific Gravity 1.057 (1.010-1.030); Urine Urobilinogen Positive (Negative)
--- NOTE | 2017-08-27 14:52 | RAD ---
HISTORY: Left leg pain TECHNIQUE: Multiple transverse and longitudinal ultrasound images were obtained of the veins of the left lower extremity using grayscale, color Doppler, and spectral Doppler imaging with and without compression and with augmentation. FINDINGS: Evaluation is made difficult due to the patient's large body habitus. VEINS: The common femoral vein, deep femoral vein, femoral vein and popliteal vein are compressible throughout their course, with normal flow on color Doppler imaging and normal response to augmentation on spectral Doppler imaging. SOFT TISSUES: Incidentally noted is a top normal but morphologically normal-appearing right groin lymph node measuring 0.9 x 2.7 cm transverse and up to 4.8 cm in length. IMPRESSION: No sonographic evidence of deep vein thrombosis.
--- NOTE | 2017-08-27 14:53 | RAD ---
HISTORY: Right-sided abdominal pain COMPARISONS: CT dated August 27, 2017 TECHNIQUE: Multiple transverse and longitudinal ultrasound images were obtained of the right upper quadrant of the abdomen using grayscale and color Doppler imaging. FINDINGS: The study is limited by patient body habitus. LIVER: The liver is diffusely echogenic and coarse in echotexture, with decreased acoustic transmission. The liver measures 23.8 cm in long axis. There is normal hepatopedal flow of the portal vein on Doppler imaging. BILIARY TREE: There is no intrahepatic or extrahepatic biliary dilatation. The common duct measures 0.5 cm. GALLBLADDER: The gallbladder is well-visualized. There is no cholelithiasis, gallbladder wall thickening, pericholecystic fluid, or sonographic Rockwell sign. PANCREAS: The pancreas is obscured by overlying bowel gas. RIGHT KIDNEY: The right kidney is normal in shape, size, contour, and echogenicity. There is no hydronephrosis or nephrolithiasis. The right kidney measures 14.7 x 7 x 8.5 cm. AORTA AND IVC: The vessels are not well visualized. FLUID: There are no pleural effusions. There is no free fluid within the hepatorenal recess. OTHER FINDINGS: None. IMPRESSION: 1. LIMITED STUDY. 2. HEPATOMEGALY WITH FATTY INFILTRATION OF THE LIVER
--- NOTE | 2017-09-03 08:39 | ED ---
Kb Hummel Jennifer, scribed for Reji Park MD on 08/27/17 at 1104 . Complex/Multi-Sys Presentation - HPI Summary HPI Summary: The patient is a 42 year old male who presents with intermittent right side pain , back pain, chest pain, and leg pain that worsened yesterday. He rates his pain an 8/10. The patient reports he vomited and had a fever this morning. He describes he had sharp/stabbing chest pain in his left shoulder that began about 5 hours ago. His leg pain is located mainly in his upper left leg. The patient additionally complains of dysuria, penile discharge, shortness of breath , coughing, and sneezing. He denies hematuria. - History Of Current Complaint Chief Complaint: EDChestPainROMI Time Seen by Provider: 08/27/17 10:30 Hx Obtained From: Patient Onset/Duration: Sudden Onset, Lasting Days - 4 days, Still Present, Worse Since - yesterday Timing: Constant Severity Currently: Moderate Severity Initially: Moderate Location: Pain At: - right side, right back, chest, left leg Character: Sharp - sharp/stabbing chest pain in upper left shoulder Associated Signs And Symptoms: Positive: Other - right side pain, back pain, chest pain, leg pain, vomiting, fever, dysuria, discharge, shortness of breath, coughing, sneezing. NEGATIVE: hematuria Related History: Recent Illness - four days ago dx UTI - Allergies/Home Medications Allergies/Adverse Reactions: Allergies Allergy/AdvReac Type Severity Reaction Status Date / Time BURD[place] Allergy Severe Swelling Uncoded 08/27/17 09:44 Home Medications: Home Medications Albuterol HFA INHALER* [Ventolin HFA Inhaler*] 2 puff INH Q4HR PRN 08/27/17 [ History Confirmed 08/27/17] Ciprofloxacin TAB* [Cipro 500 MG TAB*] 500 mg PO BID 08/27/17 [History Confirmed 08/27/17] Glimepiride (NF) 8 mg PO QAM 08/27/17 [History Confirmed 08/27/17] Lisinopril TAB* [Prinivil TAB*] 10 mg PO DAILY 08/27/17 [History Confirmed 08/27] PMH/Surg Hx/FS Hx/Imm Hx Endocrine/Hematology History: Reports: Hx Anticoagulant Therapy, Hx Diabetes - DM x 3 years. On Rx, FBS 75-110, Denies: Hx Thyroid Disease Cardiovascular History: Denies: Hx Congestive Heart Failure, Hx Deep Vein Thrombosis, Hx Hypertension , Hx Myocardial Infarction, Hx Pacemaker/ICD Respiratory History: Reports: Hx Sleep Apnea Denies: Hx Asthma, Hx Chronic Obstructive Pulmonary Disease (COPD), Hx Lung Cancer GI History: Denies: Hx Gall Bladder Disease, Hx Gastrointestinal Bleed, Hx Ulcer, Hx Urosepsis History: Denies: Hx Kidney Stones, Hx Renal Disease Musculoskeletal History: Reports: Hx Back Problems Neurological History: Denies: Hx Dementia, Hx Migraine, Hx Seizures, Hx Transient Ischemic Attacks (TIA) Psychiatric History: Reports: Hx Depression Denies: Hx Anxiety, Hx Schizophrenia, Hx Bipolar Disorder - Immunization History Date of Tetanus Vaccine: utd Date of Influenza Vaccine: none Infectious Disease History: No Infectious Disease History: Denies: Hx Hepatitis, Hx Human Immunodeficiency Virus (HIV), Traveled Outside the [place] in Last 30 Days - Family History Known Family History: Positive: Cardiac Disease, Hypertension, Diabetes, Respiratory Disease, Seizure Disorder - Social History Alcohol Use: Rare Substance Use Type: Reports: Marijuana Substance Use Comment - Amount & Last Used: 09/14/16 Hx Tobacco Use: Yes Smoking Status (MU): Current Every Day Smoker Type: Cigarettes Amount Used/How Often: 1 PPD Review of Systems Positive: Fever. Negative: Chills Negative: Erythema ENT: Other - Sneezing Negative: Sore Throat Positive: Chest Pain Positive: Shortness Of Breath, Cough Positive: Vomiting. Negative: Abdominal Pain, Nausea Positive: dysuria, discharge. Negative: hematuria Positive: Myalgia - leg pain, back pain, Edema Negative: Rash Neurological: Negative - Dizziness All Other Systems Reviewed And Are Negative: Yes Physical Exam - Summary Physical Exam Summary: Constitutional: Morbidly obese, Alert. (-) Distressed Skin: Warm, Dry HENT: Normocephalic; Atraumatic Eyes: Conjunctiva normal Neck: Musculoskeletal ROM normal neck. (-) JVD, (-) Stridor, (-) Tracheal deviation Cardio: No reproducible chest pain. Rhythm regular, rate normal, Heart sounds normal; Intact distal pulses; The pedal pulses are 2+ and symmetric. Radial pulses are 2+ and symmetric. (-) Murmur Pulmonary/Chest wall: Effort normal. (-) Respiratory distress, (-) Wheezes, (-) Rales Abd: Soft, (-) Tenderness, (-) Distension, (-) Guarding, (-) Rebound Musculoskeletal: Bilateral lower extremity edema with venous stasis skin changes , swelling bilateral, no focal swelling Genitourinary: reduced the redudant skin. There was no obvious penile lesions or discharge. Tests are nontender. No signs of hernias, gangrene. Lymph: (-) Cervical adenopathy Neuro: Alert, Oriented x3 Psych: Mood and affect Normal Triage Information Reviewed: Yes Vital Signs On Initial Exam: Initial Vitals Temp Pulse Resp BP Pulse Ox 98.1 F 119 16 115/70 93 08/27/17 09:45 08/27/17 09:45 08/27/17 09:45 08/27/17 09:45 08/27/17 09:45 Vital Signs Reviewed: Yes Diagnostics - Vital Signs Vital Signs Temp Pulse Resp BP Pulse Ox 08/27/17 09:45 98.1 F 119 16 115/70 93 - Laboratory Result Diagrams: 08/27/17 11:15 08/27/17 11:15 Lab Statement: Any lab studies that have been ordered have been reviewed, and results considered in the medical decision making process. - Radiology CXR Xray Interpretation: No Acute Changes - No radiographic evidence for acute cardiopulmonary abnormality on this portable chest x-ray. Dr. Park has reviewed this report. Radiology Interpretation Completed By: Radiologist - CT CT Abd/Pel CT Interpretation: No Acute Changes - 1. Negative for urolithiasis or hydronephrosis. 2. Mild sigmoid diverticulosis without findings of diverticulitis. 3. Fatty infiltration of the liver. Dr. Park has reviewed this report. CT Interpretation Completed By: Radiologist Chest/Thorax CTA CT Interpretation: No Acute Changes - VERY LIMITED EXAMINATION DUE TO PATIENT SIZE. NO CENTRAL PULMONARY EMBOLUS. LUNGS CLEAR. LIMITED NATURE OF THIS EXAMINATION DISCUSSED WITH THE EMERGENCY DEPARTMENT. Dr. Park has reviewed this report. CT Interpretation Completed By: Radiologist - EKG 11:14 Cardiac Rate: Tachycardia EKG Rhythm: Sinus Tachycardia - 105 BPM EKG Interpretation: no STEMI - Additional Comments Diagnostic Additional Comments: Gallbladder US. Interpreted by a radiologist. IMPRESSION: 1. LIMITED STUDY. 2. HEPATOMEGALY WITH FATTY INFILTRATION OF THE LIVER. Dr. Park has reviewed this report. Venous Doppler Study. Interpreted by a radiologist. IMPRESSION: No sonographic evidence of deep vein thrombosis. Dr. Park has reviewed this report. Re-Evaluation - Re-Evaluation First Eval Re-Evaluation Time: 13:07 Change: Unchanged Comment: I did a genitourinary physical exam. I reduced the redudant skin. There was no obvious penile lesions or discharge. Tests are nontender. No signs of hernias, gangrene. Chest pressure is still 2/10 intensity. Second Eval Re-Evaluation Time: 15:07 Change: Unchanged Comment: The patient feels better and wants to go home AMA. Complex Multi-Symp Course/Dx Course Of Treatment: The patient is a 42 year old male who presents with intermittent right side pain, back pain, chest pain, and leg pain that worsened yesterday. He rates his pain an 8/10. In the ED course the patient was given IV fluids, aspirin, cipro, dilaudid, NTG. Bloodwork was obtained. EKG showed tachycardia at 105 BPM. CXR, CT Abd/Pel, CTA Chest/Thorax were obtained. The patient is diagnosed with chest pain unspecified, right flank pain, and left leg pain. His admittance was accepted by Dr. Travon Valencia, hospitalist. However, the patient left AMA. He is at risk for pulmonary embolism and heart attack that need further work up and treatment. The patient understands the risks, including disability and . He is encouraged to return to the ED if he changes his mind and to follow up with his family doctor. - Diagnoses Provider Diagnoses: Chest pain, unspecified, Right flank pain, Left leg pain, Left against medical advice - Physician Notifications Discussed Care Of Patient With: Travon Valencia Time Discussed With Above Provider: 13:21 Instructed by Provider To: Admit As Inpatient Discharge - Sign-Out/Discharge Documenting (check all that apply): Discharge/Admit/Transfer - Discharge Plan Condition: Fair Disposition: AGAINST MEDICAL ADVICE Referrals: Abdelrahman ROE,Chevy Garcia [Primary Care Provider] - Additional Instructions: RETURN TO THE EMERGENCY DEPARTMENT FOR CHANGING OR WORSENING SYMPTOMS. The documentation as recorded by the Kb maurer Jennifer accurately reflects the service I personally performed and the decisions made by me, Reji Park MD.
== END | disposition left against medical advice (07) ==
LOC: ED 09:43
DX: M54.9 Dorsalgia, unspecified (principal); R07.9 Chest pain, unspecified; F17.210 Nicotine dependence, cigarettes, uncomplicated; R10.84 Generalized abdominal pain; Z53.21 Procedure and treatment not carried out due to patient leaving prior to being seen by health care provider
CPT/HCPCS: 36415; 71045; 71275; 74176; 76705; 80053; 81003; 83605; 83690; 84484; 85025; 85060; 85379; 86308; 87491; 87591; 93005; 96365; 96375; 99283; A9270-GY; J0744; J1170; Q9967

== ENCOUNTER 2017-09-09 09:38 | Inpatient (IN) | payer OTHER ==
[2017-09-09] MEDS ORDERED: Albuterol/Ipratropium NEB.SOL* Albuterol 2.5 MG/Ipratropium 0.5 MG 3 ML INH ONE (10:16)
[2017-09-09 10:29] LABS: ABS Basophils 0.1 10^3/ul (0-0.2); ABS Eosinophils 0.1 10^3/ul (0-0.6); ABS Lymphocytes 2.8 10^3/ul (1.0-4.8); ABS Monocytes 0.4 10^3/ul (0-0.8); ABS Neutrophils 3.2 10^3/ul (1.5-7.7); ABS Nucleated RBC 0 10^3/ul; Eosinophil % 1.2 % (0-6); Hematocrit 42 % (42-52); Hemoglobin 14.5 g/dl (14.0-18.0); Mean Corpuscular HGB Conc 34 g/dl (31-36); Mean Corpuscular Hemoglobin 29 pg (27-31); Mean Corpuscular Volume 86 fL (80-94); Mean Platelet Volume 7.3 um3 (7.4-10.4); Nucleated Red Blood Cells % 0.2; Platelet Count 249 10^3/ul (150-450); Red Blood Count 4.91 10^6/ul (4.0-5.4); Red Cell Distribution Width 15 % (10.5-15); White Blood Count 6.6 10^3/ul (3.5-10.8)
[2017-09-09 10:45] LABS: INR 0.92 (0.77-1.02)
[2017-09-09 10:48] LABS: EGFR Non-African American 144.3 (>60)
--- NOTE | 2017-09-09 10:53 | RAD ---
INDICATION: Shortness of breath and pedal edema COMPARISON: Similar chest x-ray August 27, 2017 TECHNIQUE: Single AP portable view of the chest was obtained. FINDINGS: Image quality is compromised due to the relative inferiority of a portable chest x-ray. The heart and mediastinum exhibit normal size and contour. The lungs appear hazy and the vasculature appears mildly engorged and indistinct. There is no definite costophrenic angle blunting indicating a large pleural effusion. Visualized bones are normal for the patient's age. IMPRESSION: In the correct clinical setting chest x-ray findings could be compatible with pulmonary edema.
[2017-09-09] MEDS ORDERED: Iodixanol* (CONTRAST) 320 MG/ML 100 ML SDV IV ONE (11:27)
--- NOTE | 2017-09-09 12:43 | RAD ---
INDICATION: Pedal edema, positive d-dimer. COMPARISON: Comparison is made with prior study from August 27, 2017. TECHNIQUE: Multiple real-time, color flow and Doppler tracings of both lower extremities were obtained. The exam is limited due to the patient's body habitus. FINDINGS: The common femoral, femoral, profunda femoral and popliteal veins all demonstrate normal compressibility, augmentation with compression and phasic response with respiration. The posterior tibial veins demonstrate normal compressibility and augmentation with compression. The peroneal veins were nonvisualized and were not seen on the prior study. IMPRESSION: LIMITED STUDY, NO EVIDENCE FOR DEEP VENOUS THROMBOSIS.
--- NOTE | 2017-09-09 13:02 | RAD ---
Indication: Shortness of breath. Contrast: Administered 96.3 ml of VISIPAQUE 320 mg/ml CTA of the chest performed after IV contrast administration. Coronal and sagittal reconstructed images were obtained. Inferior thyroid lobes are unremarkable. The study is limited by the patient's body habitus. No obvious filling defects are noted in the pulmonary artery. Aorta demonstrates no evidence of aortic dissection or aneurysmal dilatation. There is right paratracheal lymph nodes measuring up to 12 mm, subcarinal lymph nodes measuring up to 14 mm. Right hilar adenopathy measuring up to 15 mm is noted. The heart demonstrates no pericardial effusion. The trachea and major bronchi appear patent. The lung wong demonstrate no evidence of pleural fluid, nodules or masses. The study is limited by body habitus. The abdominal organs demonstrate no gross abnormalities. IMPRESSION: No pulmonary embolus. No evidence of thoracic aortic dissection.
[2017-09-09] MEDS ORDERED: Furosemide IV* 10 MG/ML VIAL (40 MG) IV ONE (13:23)
[2017-09-09] MEDS ORDERED: Albuterol HFA INHALER* 8 gm MDI INH PRN (13:27)
[2017-09-09] MEDS ORDERED: Magnesium Oxide TAB* 400 MG PO ONE (13:29)
--- NOTE | 2017-09-09 13:41 | ED ---
Avinash Hummel Thomas, scribed for Oz Jean MD on 09/09/17 at 1017 . Shortness of Breath - HPI Summary HPI Summary: The patient is a 42 year old male complaining of shortness of breath that began two days ago. The shortness of breath is worsened with exertion. He complains of bilateral leg swelling. He always has some leg swelling, but he reports that his current leg swelling is worse than normal. He complains of pain to his thighs. The patient also complains of a cough and some pain when he breathes deeply. The patient denies fevers and chest pain. Past medical history includes DM. - History of Current Complaint Chief Complaint: EDShortnessOfBreath Time Seen by Provider: 09/09/17 10:07 Hx Obtained From: Patient Onset/Duration: Lasting Days, Still Present Timing: Constant Current Severity: Moderate Dyspnea At: Rest Aggrevating Factors: Deep Breaths Alleviating Factors: Nothing Associated Signs & Symptoms: Cough (Nonproductive) Related History: Obesity - Allergy/Home Medications Allergies/Adverse Reactions: Allergies Allergy/AdvReac Type Severity Reaction Status Date / Time B[place] Allergy Severe Swelling Uncoded 09/09/17 09:49 PMH/Surg Hx/FS Hx/Imm Hx Endocrine/Hematology History: Reports: Hx Anticoagulant Therapy, Hx Diabetes - DM x 3 years. On Rx, FBS 75-110, Denies: Hx Thyroid Disease Cardiovascular History: Denies: Hx Congestive Heart Failure, Hx Deep Vein Thrombosis, Hx Hypertension , Hx Myocardial Infarction, Hx Pacemaker/ICD Respiratory History: Reports: Hx Sleep Apnea Denies: Hx Asthma, Hx Chronic Obstructive Pulmonary Disease (COPD), Hx Lung Cancer GI History: Denies: Hx Gall Bladder Disease, Hx Gastrointestinal Bleed, Hx Ulcer, Hx Urosepsis History: Denies: Hx Kidney Stones, Hx Renal Disease Musculoskeletal History: Reports: Hx Back Problems Neurological History: Denies: Hx Dementia, Hx Migraine, Hx Seizures, Hx Transient Ischemic Attacks (TIA) Psychiatric History: Reports: Hx Depression Denies: Hx Anxiety, Hx Schizophrenia, Hx Bipolar Disorder - Immunization History Date of Tetanus Vaccine: utd Date of Influenza Vaccine: none Infectious Disease History: No Infectious Disease History: Denies: Hx Hepatitis, Hx Human Immunodeficiency Virus (HIV), Traveled Outside the [place] in Last 30 Days - Family History Known Family History: Positive: Cardiac Disease, Hypertension, Diabetes, Respiratory Disease, Seizure Disorder - Social History Alcohol Use: Rare Substance Use Type: Reports: Marijuana Substance Use Comment - Amount & Last Used: 09/14/16 Hx Tobacco Use: Yes Smoking Status (MU): Current Every Day Smoker Type: Cigarettes Amount Used/How Often: 1 PPD Review of Systems Negative: Fever Negative: Chest Pain Positive: Shortness Of Breath Negative: Other - anorexia Positive: Edema, Other - Pain to thighs All Other Systems Reviewed And Are Negative: Yes Physical Exam - Summary Physical Exam Summary: General: well-appearing, no pain distress Skin: warm, color reflects adequate perfusion, dry Head: normal Eyes: EOMI, KHADAR ENT: normal Neck: supple, nontender Respiratory: CTA, breath sounds present Cardiovascular: Tachycardia, regular rhythm. Abdomen: soft, nontender Bowel: present Musculoskeletal: strength/ROM intact, bilateral edema Neurological: normal, sensory/motor intact, A&O x3 Psychological: affect/mood appropriate Triage Information Reviewed: Yes Vital Signs On Initial Exam: Initial Vitals Temp Pulse Resp BP Pulse Ox 97.9 F 101 24 133/68 90 09/09/17 09:42 09/09/17 09:42 09/09/17 09:42 09/09/17 09:42 09/09/17 09:42 Vital Signs Reviewed: Yes Diagnostics - Vital Signs Vital Signs Temp Pulse Resp BP Pulse Ox 09/09/17 09:42 97.9 F 101 24 133/68 90 - Laboratory Lab Results: Lab Results 09/09/17 09/09/17 09/09/17 Range/Units 10:21 10:21 10:21 WBC 6.6 (3.5-10.8) 10^3/ul RBC 4.91 (4.0-5.4) 10^6/ul Hgb 14.5 (14.0-18.0) g/dl Hct 42 (42-52) % MCV 86 (80-94) fL MCH 29 (27-31) pg MCHC 34 (31-36) g/dl RDW 15 (10.5-15) % Plt Count 249 (150-450) 10^3/ul MPV 7.3 L (7.4-10.4) um3 Neut % (Auto) 48.8 (38-83) % Lymph % (Auto) 43.0 (25-47) % Harding % (Auto) 5.9 (0-7) % Eos % (Auto) 1.2 (0-6) % Baso % (Auto) 1.1 (0-2) % Absolute Neuts (auto) 3.2 (1.5-7.7) 10^3/ul Absolute Lymphs (auto) 2.8 (1.0-4.8) 10^3/ul Absolute Monos (auto) 0.4 (0-0.8) 10^3/ul Absolute Eos (auto) 0.1 (0-0.6) 10^3/ul Absolute Basos (auto) 0.1 (0-0.2) 10^3/ul Absolute Nucleated RBC 0 10^3/ul Nucleated RBC % 0.2 INR (Anticoag Therapy) 0.92 (0.77-1.02) APTT 34.2 (26.0-36.3) seconds D-Dimer, Quantitative 643 H (Less Than 230) ng/mL Sodium 137 L (139-145) mmol/L Potassium 3.9 (3.5-5.0) mmol/L Chloride 102 (101-111) mmol/L Carbon Dioxide 27 (22-32) mmol/L Anion Gap 8 (2-11) mmol/L BUN 8 (6-24) mg/dL Creatinine 0.61 L (0.67-1.17) mg/dL Est GFR ( Amer) 185.5 (>60) Est GFR (Non-Af Amer) 144.3 (>60) BUN/Creatinine Ratio 13.1 (8-20) Glucose 290 H (70-100) mg/dL Lactic Acid (0.5-2.0) mmol/L Calcium 8.8 (8.6-10.3) mg/dL Magnesium 1.8 L (1.9-2.7) mg/dL Total Bilirubin 0.70 (0.2-1.0) mg/dL AST 29 (13-39) U/L ALT 36 (7-52) U/L Alkaline Phosphatase 56 (34-104) U/L Total Creatine Kinase 36 (10-223) U/L CK-MB (CK-2) 1.5 (0.6-6.3) ng/mL Troponin I 0.00 (<0.04) ng/mL C-Reactive Protein 12.23 H (< 5.00) mg/L B-Natriuretic Peptide ( - 100) pg/mL Total Protein 6.3 L (6.4-8.9) g/dL Albumin 3.4 (3.2-5.2) g/dL Globulin 2.9 (2-4) g/dL Albumin/Globulin Ratio 1.2 (1-3) Lipase 52 (11.0-82.0) U/L TSH 0.74 (0.34-5.60) mcIU/mL 09/09/17 09/09/17 Range/Units 10:21 10:21 WBC (3.5-10.8) 10^3/ul RBC (4.0-5.4) 10^6/ul Hgb (14.0-18.0) g/dl Hct (42-52) % MCV (80-94) fL MCH (27-31) pg MCHC (31-36) g/dl RDW (10.5-15) % Plt Count (150-450) 10^3/ul MPV (7.4-10.4) um3 Neut % (Auto) (38-83) % Lymph % (Auto) (25-47) % Harding % (Auto) (0-7) % Eos % (Auto) (0-6) % Baso % (Auto) (0-2) % Absolute Neuts (auto) (1.5-7.7) 10^3/ul Absolute Lymphs (auto) (1.0-4.8) 10^3/ul Absolute Monos (auto) (0-0.8) 10^3/ul Absolute Eos (auto) (0-0.6) 10^3/ul Absolute Basos (auto) (0-0.2) 10^3/ul Absolute Nucleated RBC 10^3/ul Nucleated RBC % INR (Anticoag Therapy) (0.77-1.02) APTT (26.0-36.3) seconds D-Dimer, Quantitative (Less Than 230) ng/mL Sodium (139-145) mmol/L Potassium (3.5-5.0) mmol/L Chloride (101-111) mmol/L Carbon Dioxide (22-32) mmol/L Anion Gap (2-11) mmol/L BUN (6-24) mg/dL Creatinine (0.67-1.17) mg/dL Est GFR ( Amer) (>60) Est GFR (Non-Af Amer) (>60) BUN/Creatinine Ratio (8-20) Glucose (70-100) mg/dL Lactic Acid 3.3 H* (0.5-2.0) mmol/L Calcium (8.6-10.3) mg/dL Magnesium (1.9-2.7) mg/dL Total Bilirubin (0.2-1.0) mg/dL AST (13-39) U/L ALT (7-52) U/L Alkaline Phosphatase (34-104) U/L Total Creatine Kinase (10-223) U/L CK-MB (CK-2) (0.6-6.3) ng/mL Troponin I (<0.04) ng/mL C-Reactive Protein (< 5.00) mg/L B-Natriuretic Peptide 34 ( - 100) pg/mL Total Protein (6.4-8.9) g/dL Albumin (3.2-5.2) g/dL Globulin (2-4) g/dL Albumin/Globulin Ratio (1-3) Lipase (11.0-82.0) U/L TSH (0.34-5.60) mcIU/mL Result Diagrams: 09/09/17 10:21 09/09/17 10:21 Lab Statement: Any lab studies that have been ordered have been reviewed, and results considered in the medical decision making process. - Radiology CXR Xray Interpretation: Positive (See Comments) - IMPRESSION: In the correct clinical setting chest x-ray findings could be compatible with pulmonary edema. Dr. Jean has reviewed this report. Radiology Interpretation Completed By: Radiologist - CT CTA Chest CT Interpretation: No Acute Changes - IMPRESSION: No pulmonary embolus. No evidence of thoracic aortic dissection. Dr. Jean has reviewed this report. CT Interpretation Completed By: Radiologist - EKG 09:57 Cardiac Rate: Tachycardia EKG Rhythm: Sinus Tachycardia - at 106 BPM EKG Interpretation: Low voltage in precordial leads. Normal ST. - Additional Comments Diagnostic Additional Comments: Ultrasound Lower Extremities Interpreted by radiologist IMPRESSION: LIMITED STUDY, NO EVIDENCE FOR DEEP VENOUS THROMBOSIS. Dr. Jean has reviewed this report. Course/Dx - Course Course Of Treatment: Medications reviewed. Allergies noted. DISCUSSED RESULTS WITH THE PATIENT AND HIS . NO IV FLUIDS GIVEN DUE TO THE CONCERN OF CHF. DISCUSSED STARTING LASIX WITH THE HOSPITALIST. THE HOSPITALISTS WILL DETERMINE NEED FOR LASIX. ADMIT HOSPITALIST. - Diagnoses Provider Diagnoses: Dyspnea, CHF (congestive heart failure) - Physician Notifications Discussed Care of Patient With: Danyell Bustamante Time Discussed With Above Provider: 13:29 Instructed by Provider To: Admit As Inpatient Discharge - Sign-Out/Discharge Documenting (check all that apply): Discharge/Admit/Transfer - Discharge Plan Condition: Stable Disposition: ADMITTED TO [facility] Referrals: Abdelrahman ROE,Chevy Garcia [Primary Care Provider] - - Billing Disposition and Condition Condition: STABLE Disposition: [facility] [place] The documentation as recorded by the Avinash maurer Thomas accurately reflects the service I personally performed and the decisions made by me, Oz Jean MD.
[2017-09-09] MEDS ORDERED: Nicotine Inhaler* 10 MG AMP INH PRN (13:44)
[2017-09-09] MEDS ORDERED: Mouth Piece, Nicotine* 1 EACH CARTRIDGE INH PRN (13:44)
[2017-09-09] MEDS: Acetaminophen TAB* 325 MG PO PRN ×2 (14:43→21:14)
[2017-09-09] MEDS: Enoxaparin(*) 40 MG/0.4 ML SYR SUBCUT SCH (14:43)
[2017-09-09] MEDS ORDERED: Dextrose 50% Syringe 50 ML* 25 GM/50 ML SYRINGE IV PUSH PRN (15:13)
[2017-09-09] MEDS: Insulin LISPRO* 1 UNITS UNIT SUBCUT SCH ×2 (17:18→21:14)
--- NOTE | 2017-09-09 20:24 | HP ---
HISTORY AND PHYSICAL: DATE OF ADMISSION: 09/09/17 TIME OF ADMISSION: 1:15 p.m. PRIMARY CARE PHYSICIAN: Dr. Quick. HISTORY OF PRESENT ILLNESS: This is a 42-year-old man with history of depressed ejection fraction in 2014, who presents today with shortness of breath and leg swelling for 3 days. 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 On a good day, he is able to walk up a flight of stairs or city block; however, this change in only being able to walk a few steps was alarming to him, so he came to the emergency department. He has had no chest pain over the past 3 days and never gets chest pain with exertion. He was, however, recently treated for UTI, so he admits to drinking more fluid than usual because he thought he needed to stay hydrated from bladder infection. He completed his antibiotics without any other events and feels his UTI has been adequately resolved. He sleeps on several pillows; however, this is unchanged and he has always slept on the same number of pillows. He does not weigh himself daily, but he feels he has been gaining some weight. He admits to some abdominal bloating and distention. PAST MEDICAL HISTORY: Obstructive sleep apnea, he does not wear CPAP; non- insulin- dependent diabetes; in 2014, he was admitted and found to have an ejection fraction of 35% to 40%, he did not undergo a left heart cath due to sepsis at that time and he did not follow up with Cardiology. PAST SURGICAL HISTORY: None. HOME MEDICATIONS: 1. Albuterol inhaler q.4 p.r.n. shortness of breath. 2. Aspirin 81 mg daily. 3. Glimepiride 8 mg daily. 4. Lisinopril 10 mg daily. 5. Metformin 100 mg b.i.d. a.c. ALLERGIES: No known drug allergies. SOCIAL HISTORY: He smokes 1 pack per day of cigarettes for the past 25 years. He also smokes marijuana. He does not drink alcohol. 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 REVIEW OF SYSTEMS: Positive for a dry cough and some nasal congestion. He denies fevers, chills, nausea, vomiting, diarrhea, or constipation. PHYSICAL EXAMINATION GENERAL: Obese man, in no distress; however, he is mildly tachypneic. VITAL SIGNS: Blood pressure 111/76; heart rate 84; respiratory rate 23; pulse ox 95% on 2 L, I turned his oxygen down to 0 L and his O2 sat was 90%; temperature 97.9. HEENT: Pupils are equal, round, and reactive to light. No nystagmus. Oral mucosa is moist with no pharyngeal exudates or erythema. NECK: I am unable to see his jugular veins. LUNGS: Clear bilaterally. I hear no wheezes or rhonchi. CHEST: Regular rate and rhythm. No murmurs. I cannot feel his PMI. ABDOMEN: Obese, mildly tender to palpation diffusely. He cannot pinpoint the pain. Negative Rockwell's sign. EXTREMITIES: 3+ lower extremity edema to the knees with chronic venous stasis changes bilaterally. DIAGNOSTIC STUDIES/LAB DATA: INR is 0.92. White blood cells 6.6, hemoglobin 14.5, and platelets 249. Sodium 137, potassium 3.9, chloride 102, creatinine 0.61, glucose 290, lactic acid 3.3, magnesium 1.8. CRP 12.2. BNP 34. Imaging: Lower extremity venous Dopplers are negative for DVT. CTA of thorax: No PE, no thoracic aortic dissection. Chest x-ray: In the correct clinical setting, chest x-ray could be compatible with pulmonary edema. ECG: Sinus tachycardia, normal axis, normal intervals. No ST- or T-wave changes. ASSESSMENT AND PLAN: This is a 42-year-old man with history of depressed ejection fraction back in 2015, he did not follow up on, who presents today with shortness of breath, dyspnea on exertion, and lower extremity edema. 1. Acute on chronic systolic heart failure. I suspect his decompensation is due to recent fluid intake; however, other factors can be contributing chronically including nonadherence with CPAP, not being optimized medically in the setting of a depressed ejection fraction, and ischemia has not been ruled out in the past. I would like to repeat an echocardiogram since it has been 3 years, trend his troponins, start him on Lasix, continue his XAVIER inhibitor, and start beta richi, and consult Cardiology for consideration of an ischemic evaluation. It is concerning that his lactate is elevated in the setting of decompensated heart failure; however, he has a normal proportional pulse pressure and good mentation, so I am less concerned about the low output state. 2. Elevated lactate as mentioned in #1. The biggest concern with this would be cardiogenic shock; however, he has good and appropriate mentation. His LFTs are normal and his blood pressure is adequate, so I have a low suspicion for low output state. I also see no signs or localizing symptoms for infection to suggest septic shock leading to elevated lactic acid. Another concern would be an abdominal source of elevated lactic acid; however, he has a nonacute abdominal exam. I would like to repeat his lactic acid now. 3. Sinus tachycardia. His EKG is read as concern for atrial flutter; however, it looks more like sinus tachycardia to me. I would like to repeat this EKG. 4. Diabetes. Hold his home pills and start sliding scale and check A1c for risk stratification. 5. Obstructive sleep apnea. He does not wear CPAP. This will be important for him going forward. 6. DVT prophylaxis. Lovenox subcu. 7. Code status. He is full code. I discussed this with him and he will be willing to be intubated should the need arise. [id number]/[facility] #: [id number] AMIRAH
[2017-09-09] MEDS: Metoprolol Tartrate TAB* 25 MG PO SCH (20:49)
[2017-09-09] MEDS: Nystatin CREAM* 15 GM TUBE TOPICAL SCH (22:16)
[2017-09-10] MEDS: Acetaminophen TAB* 325 MG PO PRN ×2 (03:08→09:05)
[2017-09-10] MEDS ORDERED: traMADol TAB* 50 MG PO ONE (03:30)
[2017-09-10 05:46] LABS: ABS Basophils 0 10^3/ul (0-0.2); ABS Eosinophils 0.1 10^3/ul (0-0.6); ABS Lymphocytes 2.6 10^3/ul (1.0-4.8); ABS Monocytes 0.5 10^3/ul (0-0.8); ABS Neutrophils 2.8 10^3/ul (1.5-7.7); ABS Nucleated RBC 0 10^3/ul; Eosinophil % 2.2 % (0-6); Hematocrit 42 % (42-52); Mean Corpuscular HGB Conc 33 g/dl (31-36); Mean Corpuscular Hemoglobin 29 pg (27-31); Mean Corpuscular Volume 87 fL (80-94); Mean Platelet Volume 7.2 um3 (7.4-10.4); Nucleated Red Blood Cells % 0.1; Platelet Count 225 10^3/ul (150-450); Red Blood Count 4.84 10^6/ul (4.0-5.4); Red Cell Distribution Width 16 % (10.5-15); White Blood Count 6.2 10^3/ul (3.5-10.8)
[2017-09-10 06:04] LABS: EGFR Non-African American 166.1 (>60)
[2017-09-10] MEDS ORDERED: Potassium Chlor TAB* 20 MEQ TAB.ER PO ONE (07:31)
[2017-09-10] MEDS ORDERED: Magnesium Oxide TAB* 400 MG PO ONE (07:31)
--- NOTE | 2017-09-10 07:46 | PN ---
Subjective Date of Service: 09/10/17 Interval History: No overnight events, feels much better this mrtamara. He has been walking to the bathroom without needing to stop and catch his breath. His legs feel sore this morning, described as tight skin. No chest pain, palpitations, nausea, vomiting. Social History: Unchanged from Admission Past Medical History: Unchanged from Admission Objective Active Medications: Acetaminophen (Tylenol Tab*) 650 mg PO Q6H PRN PRN Reason: PAIN Last Admin: 09/10/17 03:08 Dose: 650 mg Albuterol (Ventolin Hfa Inhaler*) 2 puff INH Q4HR PRN PRN Reason: SHORTNESS OF BREATH Aspirin (Aspirin 81 Mg Chew Tab*) 81 mg PO DAILY ANDREAS Device (Nicotine Mouth Piece*) 1 each INH .USE WITH NICOTROL PRN PRN Reason: CRAVING Dextrose (D50w Syringe 50 Ml*) 12.5 gm IV PUSH .FOR FS < 60 - SS PRN PRN Reason: FS < 60 Enoxaparin Sodium (Lovenox(*)) 40 mg SUBCUT Q24H [facility] Last Admin: 09/09/17 14:43 Dose: 40 mg Insulin Human Lispro (Humalog*) 0 units SUBCUT ACHS [facility] PRN Reason: Protocol Last Admin: 09/09/17 21:14 Dose: 6 units Lisinopril (Prinivil Tab*) 10 mg PO DAILY [facility] Metoprolol Tartrate (Lopressor Tab*) 12.5 mg PO Q12HR [facility] Last Admin: 09/09/17 20:49 Dose: 12.5 mg Nicotine (Nicotine Inhaler*) 10 mg INH Q2H PRN PRN Reason: CRAVING Nystatin (Nystatin Cream*) 1 applic TOPICAL TID [facility] Last Admin: 09/09/17 22:16 Dose: 1 applic Vital Signs - 8 hr 09/09/17 09/10/17 09/10/17 23:41 04:00 04:25 Temperature 97.7 F 97.7 F Pulse Rate 79 87 Respiratory 16 16 18 Rate Blood Pressure 138/83 107/94 (mmHg) O2 Sat by Pulse 93 95 Oximetry Oxygen Devices in Use Now: Nasal Cannula Appearance: alert, sitting up in bed, no distress, speaking in full sentences Eyes: No Scleral Icterus Ears/Nose/Mouth/Throat: NL Teeth, Lips, Gums Neck: - - cannot see his jugular vein Respiratory: - - decreased breath sounds at the bases Cardiovascular: RRR Abdominal: - - obese, liver nonpalpable, no guarding or rebound Lymphatic: No Cervical Adenopathy Extremities: - - venous stasis changes b/l, 3+ edema to knees Result Diagrams: 09/10/17 04:50 09/10/17 05:08 Additional Lab and Data: Lab Results 09/09/17 09/09/17 09/09/17 Range/Units 10:21 10:21 10:21 WBC 6.6 (3.5-10.8) 10^3/ul RBC 4.91 (4.0-5.4) 10^6/ul Hgb 14.5 (14.0-18.0) g/dl Hct 42 (42-52) % MCV 86 (80-94) fL MCH 29 (27-31) pg MCHC 34 (31-36) g/dl RDW 15 (10.5-15) % Plt Count 249 (150-450) 10^3/ul MPV 7.3 L (7.4-10.4) um3 Neut % (Auto) 48.8 (38-83) % Lymph % (Auto) 43.0 (25-47) % Kimble % (Auto) 5.9 (0-7) % Eos % (Auto) 1.2 (0-6) % Baso % (Auto) 1.1 (0-2) % Absolute Neuts (auto) 3.2 (1.5-7.7) 10^3/ul Absolute Lymphs (auto) 2.8 (1.0-4.8) 10^3/ul Absolute Monos (auto) 0.4 (0-0.8) 10^3/ul Absolute Eos (auto) 0.1 (0-0.6) 10^3/ul Absolute Basos (auto) 0.1 (0-0.2) 10^3/ul Absolute Nucleated RBC 0 10^3/ul Nucleated RBC % 0.2 INR (Anticoag Therapy) 0.92 (0.77-1.02) APTT 34.2 (26.0-36.3) seconds D-Dimer, Quantitative 643 H (Less Than 230) ng/mL Sodium 137 L (139-145) mmol/L Potassium 3.9 (3.5-5.0) mmol/L Chloride 102 (101-111) mmol/L Carbon Dioxide 27 (22-32) mmol/L Anion Gap 8 (2-11) mmol/L BUN 8 (6-24) mg/dL Creatinine 0.61 L (0.67-1.17) mg/dL Est GFR ( Amer) 185.5 (>60) Est GFR (Non-Af Amer) 144.3 (>60) BUN/Creatinine Ratio 13.1 (8-20) Glucose 290 H (70-100) mg/dL Lactic Acid (0.5-2.0) mmol/L Calcium 8.8 (8.6-10.3) mg/dL Magnesium 1.8 L (1.9-2.7) mg/dL Total Bilirubin 0.70 (0.2-1.0) mg/dL AST 29 (13-39) U/L ALT 36 (7-52) U/L Alkaline Phosphatase 56 (34-104) U/L Total Creatine Kinase 36 (10-223) U/L CK-MB (CK-2) 1.5 (0.6-6.3) ng/mL Troponin I 0.00 (<0.04) ng/mL C-Reactive Protein 12.23 H (< 5.00) mg/L B-Natriuretic Peptide ( - 100) pg/mL Total Protein 6.3 L (6.4-8.9) g/dL Albumin 3.4 (3.2-5.2) g/dL Globulin 2.9 (2-4) g/dL Albumin/Globulin Ratio 1.2 (1-3) Lipase 52 (11.0-82.0) U/L TSH 0.74 (0.34-5.60) mcIU/mL 09/09/17 09/09/17 Range/Units 10:21 10:21 WBC (3.5-10.8) 10^3/ul RBC (4.0-5.4) 10^6/ul Hgb (14.0-18.0) g/dl Hct (42-52) % MCV (80-94) fL MCH (27-31) pg MCHC (31-36) g/dl RDW (10.5-15) % Plt Count (150-450) 10^3/ul MPV (7.4-10.4) um3 Neut % (Auto) (38-83) % Lymph % (Auto) (25-47) % Kimble % (Auto) (0-7) % Eos % (Auto) (0-6) % Baso % (Auto) (0-2) % Absolute Neuts (auto) (1.5-7.7) 10^3/ul Absolute Lymphs (auto) (1.0-4.8) 10^3/ul Absolute Monos (auto) (0-0.8) 10^3/ul Absolute Eos (auto) (0-0.6) 10^3/ul Absolute Basos (auto) (0-0.2) 10^3/ul Absolute Nucleated RBC 10^3/ul Nucleated RBC % INR (Anticoag Therapy) (0.77-1.02) APTT (26.0-36.3) seconds D-Dimer, Quantitative (Less Than 230) ng/mL Sodium (139-145) mmol/L Potassium (3.5-5.0) mmol/L Chloride (101-111) mmol/L Carbon Dioxide (22-32) mmol/L Anion Gap (2-11) mmol/L BUN (6-24) mg/dL Creatinine (0.67-1.17) mg/dL Est GFR ( Amer) (>60) Est GFR (Non-Af Amer) (>60) BUN/Creatinine Ratio (8-20) Glucose (70-100) mg/dL Lactic Acid 3.3 H* (0.5-2.0) mmol/L Calcium (8.6-10.3) mg/dL Magnesium (1.9-2.7) mg/dL Total Bilirubin (0.2-1.0) mg/dL AST (13-39) U/L ALT (7-52) U/L Alkaline Phosphatase (34-104) U/L Total Creatine Kinase (10-223) U/L CK-MB (CK-2) (0.6-6.3) ng/mL Troponin I (<0.04) ng/mL C-Reactive Protein (< 5.00) mg/L B-Natriuretic Peptide 34 ( - 100) pg/mL Total Protein (6.4-8.9) g/dL Albumin (3.2-5.2) g/dL Globulin (2-4) g/dL Albumin/Globulin Ratio (1-3) Lipase (11.0-82.0) U/L TSH (0.34-5.60) mcIU/mL Assess/Plan/Problems-Billing Assessment: 42 yo man with history of systolic heart failure and morbid obesity admitted with shortness of breath, dyspnea on exertion, and 15 pound weight gain in 2 weeks. - Patient Problems (1) Acute on chronic systolic (congestive) heart failure Current Visit: Yes Status: Acute Code(s): I50.23 - ACUTE ON CHRONIC SYSTOLIC (CONGESTIVE) HEART FAILURE SNOMED Code(s): 568868154 Comment: Likely due to recent excess fluid intake in setting of UTI Patient reports 15 lbs up from baseline ("dry weight" is 460lbs) Down 2lbs since yesterday, continue daily weights and strict In/Out Etiology is unclear. I discussed the case with cardiology yesterday. Unfortunately a LHC cannot be performed due to his weight and limitations of the cath table. I also talked with nuclear medicine--the stress test table cannot accommodate a weight over 440lbs. The treatment at this time will be medical management I added a beta richi to his home Janina inhibitor yesterday His cholesterol/LDL are okay, but given his diabetes and inability to evaluate for underlying ischemia, a statin is indicated (2) BMI 60.0-69.9, adult Current Visit: Yes Status: Acute Code(s): Z68.44 - BODY MASS INDEX (BMI) 60.0-69.9, ADULT SNOMED Code(s): 348884219 (3) LUCITA (obstructive sleep apnea) Current Visit: Yes Status: Acute Code(s): G47.33 - OBSTRUCTIVE SLEEP APNEA ( ADULT) (PEDIATRIC) SNOMED Code(s): 61545557 Comment: does not wear cpap this may also be contributing to heart failure (4) Diabetes Current Visit: Yes Status: Acute Code(s): E11.9 - TYPE 2 DIABETES MELLITUS WITHOUT COMPLICATIONS SNOMED Code(s): 51874016 Comment: A1c pending continue lispro sliding scale for now
[2017-09-10] MEDS ORDERED: Perflutren Lipid Microsphere* 3 ML VIAL ONE (08:11)
[2017-09-10] MEDS: Insulin LISPRO* 1 UNITS UNIT SUBCUT SCH ×4 (09:01→20:38)
[2017-09-10] MEDS: Metoprolol Tartrate TAB* 25 MG PO SCH ×2 (09:02→20:39)
[2017-09-10] MEDS: Lisinopril TAB* 10 MG PO SCH (09:02)
[2017-09-10] MEDS: Aspirin 81 mg CHEW TAB* 81 MG TAB.CHEW PO SCH (09:02)
[2017-09-10] MEDS: Nystatin CREAM* 15 GM TUBE TOPICAL SCH ×3 (10:40→20:41)
[2017-09-10] MEDS ORDERED: Ibuprofen TAB* 600 MG PO ONE (10:55)
[2017-09-10] MEDS: Furosemide IV* 10 MG/ML VIAL (40 MG) IV SLOW PU SCH ×2 (11:46→17:15)
--- NOTE | 2017-09-10 12:09 | ECHO ---
Patient: ZAIDA GRIFFITH Rec#: [id number] : 1975 Date: 09/10/2017 Age: 42y Height: 175.26 cm / 69.0 in Weight: 214.55 kg / 472.9 lbs Sex: M BSA: 2.98 Room#: [facility] Admit Date#: 09/09/2017 Type: Inpatient Referring: Danyell Bustamante MD Reading: Ady Smith MD Superintendent Of Generation[facility] Indication: CHF, dyspnea BP: 107/94 HR: 81 Rhythm: NSR Findings History: Morbid obesity, smoker, DM, LUCITA. Technical Comments: The study is technically difficult. The study is technically limited due to patient body habitus. Completed at 0904. Left Ventricle: The left ventricular chamber size is normal. Moderate concentric left ventricular hypertrophy is observed. There is septal flattening of the interventricular septum consistent with right ventricular volume or pressure overload. Normal left ventricular diastolic filling is observed. Left Atrium: The left atrium is mildly dilated. Right Ventricle: The right ventricle is moderately dilated. The right ventricular global systolic function is mildly to moderately reduced. Right Atrium: The right atrium is moderately dilated. Aortic Valve: The aortic valve is trileaflet. The aortic valve leaflets are mildly thickened. There is no evidence of aortic regurgitation. There is no evidence of aortic stenosis. Mitral Valve: The mitral valve leaflets are mildly thickened. There is a trace of mitral regurgitation. There is no evidence of mitral stenosis. Tricuspid Valve: The tricuspid valve structure is not well visualized. There is trace tricuspid regurgitation. Unable to estimate the right ventricular systolic pressure. There is no tricuspid stenosis. Pulmonic Valve: The pulmonic valve structure is not well visualized. There is a trace pulmonic regurgitation. There is no pulmonic stenosis. Pericardium: There is no significant pericardial effusion. A pericardial fat pad is visualized. Aorta: There is mild dilatation of the ascending aorta. There is mild dilatation of the aortic arch. There is mild dilatation of the aortic root. Pulmonary Artery: The main pulmonary artery is not well visualized. Venous: The inferior vena cava is dilated. There is a greater than 50% respiratory change in the inferior vena cava dimension. Contrast: Definity was used to optimize study. 2 mL of diluted Definity was utilized. Intravenous contrast was used to enhance endocardial border definition. Conclusions Likely normal LV function but poor LV visualization even with contrast EF Greater Than 50% There is no evidence of aortic stenosis. There is no evidence of mitral stenosis. There is trace tricuspid regurgitation. Unable to estimate the right ventricular systolic pressure. There is no significant pericardial effusion. Not able to compare to JUAN of 2104 Measurements Name Value Normal Range RVIDd (AP) 2D 4.2 cm (0.9 - 2.6) RVDdMajor (2D) 5.2 cm (2.2 - 4.4) RAd ISD 4CH 5.9 cm (3.4 - 4.9) RA (A4C)W 4.8 cm (2.9 - 4.6) IVSd (2D) 1.5 cm (0.6 - 1) LVPWd (2D) 1.4 cm (0.6 - 1) LVIDd (2D) 4 cm (3.6 - 5.4) LVIDs (2D) 3.1 cm - LV FS (2D) 22 % (25 - 45) Aortic Annulus 2.4 cm (1.4 - 2.6) Ao root diameter (2D) 3.7 cm (2.1 - 3.5) Ascending Ao 3.9 cm (2.1 - 3.4) Aortic arch 3.5 cm (1.8 - 3.4) LA dimension (AP) 2D 4.3 cm (2.3 - 3.8) LAd ISD 4CH 6.2 cm (2.9 - 5.3) LA ISD 4CH W 5.1 cm (2.5 - 4.5) Name Value Normal Range LA ESV SP 4CH (A/L) 127 ml - LA ESV SP 2CH (A/L) 99 ml - LA ESV BP (A/L) 117 ml - LA ESV BP (A/L) index 39 ml/m2 - LA ESV SP 4CH (MOD) 112 ml - LA ESV SP 2CH (MOD) 89 ml - Name Value Normal Range MV E-wave Vmax 0.97 m/sec - MV deceleration time 213 msec - MV A-wave Vmax 0.56 m/sec - MV E:A ratio 1.71 ratio - LV septal e' Vmax 0.13 m/sec - LV lateral e' Vmax 0.16 m/sec - LV E:e' septal ratio 7.46 ratio - LV E:e' lateral ratio 6.06 ratio - Name Value Normal Range AV Vmax 1.3 m/sec - AV VTI 29.86 cm - AV peak gradient 6.38 mmHg - AV mean gradient 3.19 mmHg - LVOT Vmax 0.95 m/sec - LVOT VTI 18.67 cm - LVOT peak gradient 3.62 mmHg - LVOT mean gradient 1.78 mmHg - ISAIAH Vmax 0.68 m/sec - Name Value Normal Range IVC diameter 2.13 cm - Name Value Normal Range PV Vmax 0.95 m/sec - PV peak gradient 3.6 mmHg -
[2017-09-10] MEDS: Nicotine PATCH 14 MG/24 HR* PATCH TRANSDERM SCH (12:55)
[2017-09-10] MEDS: Enoxaparin(*) 40 MG/0.4 ML SYR SUBCUT SCH (14:07)
[2017-09-10] MEDS ORDERED: Nicotine Patch Removal NOTE PATCH OFF SCH (21:00)
--- NOTE | 2017-09-11 08:23 | PN ---
Subjective Date of Service: 09/11/17 Interval History: Pt is without complaint though not sleeping as well in the hospital. Afebrile. HDS. Still on 3L Sat in mid 90s. Leg edema much improved. 215.4-> 212 kg (467lbs), had been 460 with PCP ~10 days ago. Social History: Unchanged from Admission Past Medical History: Unchanged from Admission Objective Active Medications: Acetaminophen (Tylenol Tab*) 650 mg PO Q6H PRN PRN Reason: PAIN Last Admin: 09/10/17 09:05 Dose: 650 mg Albuterol (Ventolin Hfa Inhaler*) 2 puff INH Q4HR PRN PRN Reason: SHORTNESS OF BREATH Aspirin (Aspirin 81 Mg Chew Tab*) 81 mg PO DAILY [facility] Last Admin: 09/10/17 09:02 Dose: 81 mg Device (Nicotine Mouth Piece*) 1 each INH .USE WITH NICOTROL PRN PRN Reason: CRAVING Dextrose (D50w Syringe 50 Ml*) 12.5 gm IV PUSH .FOR FS < 60 - SS PRN PRN Reason: FS < 60 Enoxaparin Sodium (Lovenox(*)) 40 mg SUBCUT Q24H [facility] Last Admin: 09/10/17 14:07 Dose: 40 mg Furosemide (Lasix Iv*) 40 mg IV SLOW PU 0800,1700 [facility] Last Admin: 09/10/17 17:15 Dose: 40 mg Insulin Human Lispro (Humalog*) 0 units SUBCUT ACHS [facility] PRN Reason: Protocol Last Admin: 09/10/17 20:38 Dose: 6 units Lisinopril (Prinivil Tab*) 10 mg PO DAILY [facility] Last Admin: 09/10/17 09:02 Dose: 10 mg Metoprolol Tartrate (Lopressor Tab*) 12.5 mg PO Q12HR [facility] Last Admin: 09/10/17 20:39 Dose: 12.5 mg Nicotine (Nicotine Inhaler*) 10 mg INH Q2H PRN PRN Reason: CRAVING Nicotine (Nicotine Patch 14 Mg/24 Hr*) 1 patch TRANSDERM DAILY [facility] Last Admin: 09/10/17 12:55 Dose: 1 patch Nystatin (Nystatin Cream*) 1 applic TOPICAL TID [facility] Last Admin: 09/10/17 20:41 Dose: 1 applic Pharmacy Profile Note (Nicotine Patch Removal Note*) 1 note PATCH OFF 2100 [facility] Last Admin: 09/10/17 20:40 Dose: 1 note Vital Signs - 8 hr 09/11/17 09/11/17 09/11/17 03:46 07:31 08:00 Temperature 98.1 F 97.9 F Pulse Rate 96 91 Respiratory 22 16 18 Rate Blood Pressure 131/60 137/67 (mmHg) O2 Sat by Pulse 94 95 Oximetry Oxygen Devices in Use Now: Nasal Cannula Appearance: NAD, super morbid obesity Eyes: No Scleral Icterus, PERRLA Ears/Nose/Mouth/Throat: NL Teeth, Lips, Gums, Mucous Membranes Moist Neck: NL Appearance and Movements; NL JVP Respiratory: Symmetrical Chest Expansion and Respiratory Effort, Clear to Auscultation, - - distant lung sounds Cardiovascular: NL Sounds; No Murmurs; No JVD Abdominal: NL Sounds; No Tenderness; No Distention, No Hepatosplenomegaly Extremities: - - trace edema. Skin: No Rash or Ulcers, - - venous stasis changes. Neurological: Alert and Oriented x 3, NL Sensation, NL Muscle Strength and Tone Nutrition: Taking PO's Result Diagrams: 09/10/17 04:50 09/10/17 05:08 Additional Lab and Data: Laboratory Results - last 24 hr 09/10/17 09/10/17 09/10/17 05:08 11:47 16:38 POC Glucose (mg/dL) 224 H 214 H Hemoglobin A1c 9.5 H 09/10/17 09/11/17 20:30 07:49 POC Glucose (mg/dL) 240 H 199 H Hemoglobin A1c Assess/Plan/Problems-Billing Assessment: 42 yo man with history of systolic heart failure and morbid obesity admitted with shortness of breath, dyspnea on exertion, and 15 pound weight gain in 2 weeks. - Patient Problems (1) Acute on chronic systolic (congestive) heart failure Current Visit: Yes Status: Acute Code(s): I50.23 - ACUTE ON CHRONIC SYSTOLIC (CONGESTIVE) HEART FAILURE SNOMED Code(s): 506782403 Comment: Likely due to recent excess fluid intake in setting of UTI Patient reports 15 lbs up from baseline ("dry weight" is 460lbs) Down 3.4kgs since yesterday, continue daily weights and strict In/Out Etiology is unclear. Unfortunately a LHC cannot be performed due to his weight and limitations of the cath table. per nuclear medicine--the stress test table cannot accommodate a weight over 440lbs. The treatment at this time will be medical management continue beta richi to his home Janina inhibitor yesterday LDL 105, HDL 44. He has 10 year ASCVD risk of 10.2%, high intensity statin recommend especially as can not get stress or LHC currently. (2) BMI 60.0-69.9, adult Current Visit: Yes Status: Acute Code(s): Z68.44 - BODY MASS INDEX (BMI) 60.0-69.9, ADULT SNOMED Code(s): 136665994 Comment: recommend life style modification. plan referral for consideration for bariatric surgery (3) Diabetes Current Visit: Yes Status: Acute Code(s): E11.9 - TYPE 2 DIABETES MELLITUS WITHOUT COMPLICATIONS SNOMED Code(s): 50724444 Comment: A1c pending continue lispro sliding scale for now (4) LUCITA (obstructive sleep apnea) Current Visit: Yes Status: Acute Code(s): G47.33 - OBSTRUCTIVE SLEEP APNEA ( ADULT) (PEDIATRIC) SNOMED Code(s): 36823301 Comment: does not wear cpap this may also be contributing to heart failure (5) HTN (hypertension) Current Visit: Yes Status: Acute Code(s): I10 - ESSENTIAL (PRIMARY) HYPERTENSION SNOMED Code(s): 10365106 Comment: continue BB, ACEI.
[2017-09-11] MEDS: Insulin LISPRO* 1 UNITS UNIT SUBCUT SCH ×2 (09:23→12:35)
[2017-09-11] MEDS: Metoprolol Tartrate TAB* 25 MG PO SCH (09:23)
[2017-09-11] MEDS: Furosemide IV* 10 MG/ML VIAL (40 MG) IV SLOW PU SCH (09:24)
[2017-09-11] MEDS: Aspirin 81 mg CHEW TAB* 81 MG TAB.CHEW PO SCH (09:24)
[2017-09-11] MEDS: Lisinopril TAB* 10 MG PO SCH (09:24)
[2017-09-11] MEDS: Nicotine PATCH 14 MG/24 HR* PATCH TRANSDERM SCH (09:25)
[2017-09-11] MEDS: Acetaminophen TAB* 325 MG PO PRN (09:31)
[2017-09-11] MEDS: Nystatin CREAM* 15 GM TUBE TOPICAL SCH (11:05)
[2017-09-11 12:26] VITALS: BP 117/65
[2017-09-11] MEDS ORDERED: Atorvastatin* 40 MG TAB PO SCH (17:00)
--- NOTE | 2017-09-12 07:44 | DS ---
DISCHARGE SUMMARY: DATE OF ADMISSION: 09/09/17 DATE OF DISCHARGE: 09/11/17 ADMITTING PROVIDER: Danyell Bustamante DO. ATTENDING PHYSICIAN: Travon Valencia MD PRIMARY CARE PROVIDER: Dr. Quick. CHIEF COMPLAINT: Shortness of breath and leg swelling. PRINCIPAL DIAGNOSIS: Acute congestive heart failure exacerbation. HISTORY OF PRESENT ILLNESS AND HOSPITAL COURSE: Micah Viveros is a 42-year- old male with a past medical history of systolic CHF back in 2014, with ejection fraction of 35% to 40% at that time; current 1 pack per day smoker; poorly control non-insulin dependent diabetes mellitus. Please see H and P of Dr. Danyell Bustamante for full details. 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 He denied any chest pain. He recently had been treated for a urinary tract infection after presentation to the emergency room, got 5 days of ciprofloxacin. He had also been evaluated in the emergency room for some intermittent right-sided flank pain, back pain, chest pain, and leg pain on August 27, but left AMA, before admission, at that time. He had notable lower extremity edema, was thought to have acute CHF exacerbation. He was put on Lasix 40 mg IV b.i.d. He had a repeat echocardiogram which showed improvement in his ejection fraction to greater than 50%. It was a poor study with poor visualization. There was no evidence of aortic stenosis, mitral stenosis. There was trace tricuspid regurgitation. RVSP was unable to be estimated. He notably had gained 15 pounds between his PCP appointment with Dr. Quick and the admission. He lost 2.5 kg between admission and discharge. Weight on discharge is 212.0 kg versus 215.5 kg. His reported weight as an outpatient had been 460 pounds. He required 3 liters of oxygen, was able to be weaned off by the day of discharge, able to ambulate the halls. He had a 10-year ASCVD risk of 10.2%, was recommended to start on high-intensity statin. Given his prescription for atorvastatin 40 mg daily, he was also started on beta-richi, continued on his XAVIER inhibitor, and aspirin. Strong consideration to establish care with a hot bread baker. He has already been plugged in with [facility] for trying to get a sleep study done and signed out for [employer] to try to loose weight. His BMI is 69. He did not want referral to Dr. Cherry for bariatric surgery consultation at this point in time prior to his attempts at lifestyle modification. He is interested in getting nicotine patch and inhaler supplementation to help quit smoking at this time, and this was provided. He was without chest pain throughout this admission. He also had a CT angiogram which showed no pulmonary embolus, no evidence of thoracic aortic dissection. He had negative duplex Doppler of the lower extremity without evidence of DVTs, although it was a limited study. His A1c was checked, it was 9.5. DISCHARGE MEDICATIONS: Include: 1. Atorvastatin 40 mg daily (new). 2. Lasix 20 mg daily (new). 3. Albuterol 2 puffs inhaled q.4 hours p.r.n. 4. Aspirin 81 mg. 5. Lisinopril 10 mg daily. 6. Metoprolol succinate 25 mg daily (new). 7. Nicotine inhaler 10 mg inhaled q.2 hours p.r.n. (new). 8. Nicotine patch 14 mg per 24 hours (new). 9. Metformin 1000 mg p.o. b.i.d. 10. Glimepiride 8 mg p.o. q.a.m. DISCHARGE DIET: Heart-healthy, carbohydrate consistent, unchanged. ACTIVITY LEVEL: No restrictions. FOLLOWUP: Please follow up with Dr. Quick within 3 to 5 days of discharge. Strong consideration to establish care with a hot bread baker given his substantial risk factors, history of CHF. He was advised to record his weight in a log book every day. Call provider if greater than 3 pounds in 1 day or 5 pounds in 1 week. He should follow up with [facility] for a sleep study. Consideration for followup with Dr. Cherry at a future date if lifestyle modification fails to reduce his super morbid obesity with BMI of 69. TIME SPENT ON DISCHARGE: 35 minutes. [id number]/[facility] #: [id number] AMIRAH
== END 2017-09-11 14:16 | disposition home or self-care (01) | DRG 194 ==
LOC: ED 09:38 → MEDTELE 11:51
PROVIDERS: ADMIT Internal Medicine; ATTEND Internal Medicine
DX: I50.23 Acute on chronic systolic (congestive) heart failure (principal); Z68.44 Body mass index [BMI] 60.0-69.9, adult; E11.9 Type 2 diabetes mellitus without complications; F32.9 Major depressive disorder, single episode, unspecified; F12.90 Cannabis use, unspecified, uncomplicated; F17.210 Nicotine dependence, cigarettes, uncomplicated; G47.33 Obstructive sleep apnea (adult) (pediatric); I87.8 Other specified disorders of veins; R00.0 Tachycardia, unspecified; R74.0 Nonspecific elevation of levels of transaminase and lactic acid dehydrogenase [LDH]; E66.01 Morbid (severe) obesity due to excess calories; I07.1 Rheumatic tricuspid insufficiency; E11.65 Type 2 diabetes mellitus with hyperglycemia; Z82.49 Family history of ischemic heart disease and other diseases of the circulatory system; Z83.3 Family history of diabetes mellitus; Z82.0 Family history of epilepsy and other diseases of the nervous system; Z88.8 Allergy status to other drugs, medicaments and biological substances; Z87.440 Personal history of urinary (tract) infections; Z79.84 Long term (current) use of oral hypoglycemic drugs; Z79.82 Long term (current) use of aspirin; Z83.6 Family history of other diseases of the respiratory system; Z72.89 Other problems related to lifestyle
CPT/HCPCS: 36415; 71045; 71275; 80048; 80053; 80061; 82550; 82553; 83036; 83605; 83690; 83735; 83880; 84443; 84484; 85025; 85379; 85610; 85730; 86140; 93005; 93306; 93970; 99285; A9270-GY; C8929; J1650; J1940

== ENCOUNTER 2018-03-02 15:29 | Observation (INO) | payer OTHER ==
--- OUTSIDE RECORDS SUMMARY | 2018-03-02 15:50 | XMS REPORT ---
:1975 External Reference #:[id number] Author Organization [facility] Address [address] [place] [address] [place] [address] Phone [phone] Care Team Providers Name Role Phone Chevy Quick MD Primary Care Physician Unavailable Payers Type Date Identification Numbers Payment Provider Subscriber Commercial Effective: Policy Number: Robert Griffith 2013 [id number] PayID: [id number] [address] [place] [address] Problems Description No Information Family History Date Family Member(s) Problem(s) Comments Father due to stroke () Father Alcoholism Mother Hypertension Siblings 6 Social History Type Date Description Comments Marital Status Lives With Lives With Children 2 boys 1 girl Lives With 4 cats 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 Cigarette Use continues to smoke Cigarette Use Heavy tobacco smoker (more than 10 cigarettes/day) ETOH Use Denies alcohol use Recreational Drug Use Marijuana occasionally Smoking Patient is a current smoker, smokes 1 ppd x 25 years every day Daily Caffeine Consumes on average 3 cups of regular Large iced coffee coffee per day Exercise Type/Frequency [facility] member Exercise Type/Frequency Exercises regularly Exercise Type/Frequency Exercises at a health club 2 times a At least week Allergies, Adverse Reactions, Alerts Date Description Reaction Status Severity Comments 12/24/2013 NKDA active Medications Medication Date Status Form Strength Qnty SIG Indications Ordering Provider Aspirin Ec 12/31/ Active Tablets DR 81mg 1 by mouth I42.9 [place] 2013 every day Jose Alfredo Bennett M.D. Metformin HCL / Active Tablets 1000mg 1 by mouth Unknown 0000 twice a day 8 HR Arthritis 00/ Active Tablets 650mg as needed Unknown Tylenol 0000 Lisinopril / Active Tablets 10mg 90tabs 1 by mouth I42.9 [place] 0000 every day Jose Alfredo Bennett M.D. Furosemide / Active Tablets 20mg 90tabs 1 by mouth [place] 0000 5 days caden Brizuela M.D. Glimepiride / Active Tablets 4mg 2 by mouth Unknown 0000 every day Metoprolol / Active Tablets ER 25mg 180tab 1 by mouth [place] Succinate ER 0000 24HR s every day Jose Alfredo Bennett M.D. Atorvastatin / Active Tablets 40mg 90tabs 1 by mouth [place] Calcium 0000 every day Jose Alfredo Bennett M.D. Lisinopril 12/31/ Hx Tablets 2.5mg 30tabs 1 by mouth 425.4 [place] 2013 - in evening Jose Alfredo Bennett, M.DJosh 2017 Levaquin 12/24/ Hx Tablets 750mg 14tabs 1 by mouth 682.9 [place] DJosh 2013 - every day [place], M.DJosh 2017 Lisinopril / Hx Tablets 2.5mg 1 by mouth Unknown 0000 - every day 2013 Metoprolol / Hx Tablets 25mg 30tabs 1/2 tab by [place] Tartrate 0000 - mouth once Jose Alfredo Bennett, 09/30/ day M.D. 2017 Aspirin Ec / Hx Tablets DR 81mg 1 by mouth Unknown 0000 - every day 2013 Cymbalta / Hx Caps DR 20mg 1 by mouth Unknown 0000 - Part twice 12/23/ daily 2013 Lidoderm / Hx Patches 5% apply to Unknown 0000 - left shoulder 2014 once daily - 12 hours on, 12 hours off Percocet / Hx Tablets 5-325mg 1-2 by Unknown 0000 - mouth 12/23/ every to 2013 6 hours as needed pain Cymbalta / Hx Caps DR 60mg 1 by mouth Unknown 0000 - Part every day 2017 Gabapentin / Hx Capsules 100mg 5 caps q 8 Unknown 0000 - hrs 2017 Ibuprofen 00/00/ Hx Tablets 200mg 100tab as needed Unknown 0000 - s 2017 Vital Signs Date Vital Result Comment 02/13/2018 Height 69 inches 5'9" Weight 431.12 lb Heart Rate 88 /min BP Systolic Sitting 124 mmHg Lue regular cuff (lower arm) BP Diastolic Sitting 76 mmHg Lue regular cuff (lower arm) Respiratory Rate 12 /min O2 % BldC Oximetry 97 % BMI (Body Mass Index) 63.7 kg/m2 02/07/2018 Height 69 inches 5'9" Weight 420.00 lb Heart Rate 90 /min BP Systolic Sitting 138 mmHg BP Diastolic Sitting 78 mmHg Respiratory Rate 20 /min Body Temperature 98.2 F BMI (Body Mass Index) 62.0 kg/m2 12/31/2017 Height 69 inches 5'9" Weight 433.50 lb Heart Rate 92 /min BP Systolic Sitting 126 mmHg Lue large cuff BP Diastolic Sitting 86 mmHg Lue large cuff Respiratory Rate 20 /min O2 % BldC Oximetry 93 % On Ra BMI (Body Mass Index) 64.0 kg/m2 Neck Circumference in inches 19.5 12/04/2017 Height 69 inches 5'9" Weight 436.00 lb Heart Rate 84 /min BP Systolic Sitting 126 mmHg Rue lg cuff BP Diastolic Sitting 80 mmHg Rue lg cuff BMI (Body Mass Index) 64.4 kg/m2 Ejection Fraction 55-60% Echo 11/05/17 09/30/2017 Height 69 inches 5'9" Weight 435.25 lb Heart Rate 88 /min BP Systolic Sitting 132 mmHg lae lg cuff BP Diastolic Sitting 62 mmHg lae lg cuff BP Systolic Standing 128 mmHg la repEAT Sitting BP Diastolic Standing 64 mmHg la repEAT Sitting Respiratory Rate 18 /min BMI (Body Mass Index) 64.3 kg/m2 Ejection Fraction 50% 09/10/2017 12/31/2013 Height 69 inches 5'9" Weight 447.75 lb with shoes Heart Rate 96 /min BP Systolic Sitting 110 mmHg LA lg cuff BP Diastolic Sitting 86 mmHg LA lg cuff Respiratory Rate 17 /min BMI (Body Mass Index) 66.1 kg/m2 12/24/2013 Height 69 inches 5'9" Weight 452.00 lb Heart Rate 97 /min BP Systolic Sitting 122 mmHg BP Diastolic Sitting 85 mmHg Respiratory Rate 20 /min Body Temperature 99.3 F BMI (Body Mass Index) 66.7 kg/m2 Results Test Date Test Result H/L Range Note Laboratory test 02/07/2018 Surgical Pathology SEE RESULT BELOW 1 finding Lipid Panel - [facility] 10/11/2017 Creatine Kinase(CK) 38 U/L 10-223 Laboratory test 10/11/2017 Hemoglobin A1c 8.3 % High 4.0-5.6 2 finding (Glyco HGB) Comp Metabolic Panel 10/11/2017 Sodium 136 mmol/L 135-145 Potassium 4.3 mmol/L 3.5-5.0 Chloride 100 mmol/L Low 101-111 Co2 Carbon Dioxide 27 mmol/L 22-32 Anion Gap 9 mmol/L 2-11 Glucose 228 mg/dL High 70-100 Blood Urea Nitrogen 9 mg/dL 6-24 Creatinine 0.62 mg/dL Low 0.67-1.17 BUN/Creatinine Ratio 14.5 8-20 Calcium 9.2 mg/dL 8.6-10.3 Total Protein 6.6 g/dL 6.4-8.9 Albumin 3.8 g/dL 3.2-5.2 Globulin 2.8 g/dL 2-4 Albumin/Globulin Ratio 1.4 1-3 Total Bilirubin 0.70 mg/dL 0.2-1.0 Alkaline Phosphatase 40 U/L 34-104 Alt 26 U/L 7-52 Ast 21 U/L 13-39 Egfr Non- 141.6 >60 Egfr 182.1 >60 3 Urine Microalbumin Random 10/11/2017 Ur Microalbumin (mg/L) < 15.0 mg/L Urine Creatinine 95.45 mg/dL Urine Microalbumin/Creatinine TNP ug/mg <31 4 Laboratory test finding 10/11/2017 B-Type Natriuretic Peptide BNP 6 pg/mL 5 Magnesium 1.8 mg/dL Low 1.9-2.7 CBC W/Auto Diff 10/11/2017 White Blood Count 6.0 10^3/uL 3.5-10.8 Red Blood Count 5.55 10^6/uL High 4.00-5.40 Hemoglobin 16.3 g/dL 14.0-18.0 Hematocrit 48 % 42-52 Mean Corpuscular Volume 86 fL 80-94 Mean Corpuscular Hemoglobin 30 pg 27-31 Mean Corpuscular HGB Conc 34 g/dL 31-36 Red Cell Distribution Width 15 % 10.5-15 Platelet Count 245 10^3/uL 150-450 Mean Platelet Volume 8.0 um3 7.4-10.4 Abs Neutrophils 3.0 10^3/uL 1.5-7.7 Abs Lymphocytes 2.3 10^3/uL 1.0-4.8 Abs Monocytes 0.5 10^3/uL 0-0.8 Abs Eosinophils 0.2 10^3/uL 0-0.6 Abs Basophils 0 10^3/uL 0-0.2 Abs Nucleated RBC 0 10^3/uL Granulocyte % 50.4 % 38-83 Lymphocyte % 37.8 % 25-47 Monocyte % 7.6 % High 0-7 Eosinophil % 3.7 % 0-6 Basophil % 0.5 % 0-2 Nucleated Red Blood Cells % 0.2 Lipid Panel 10/11/2017 Triglycerides 71 mg/dL 6 Cholesterol 103 mg/dL 7 HDL Cholesterol 39.9 mg/dL 8 LDL Cholesterol 49 mg/dL 9 CBC No Diff 12/04/2013 White Blood Count 7.8 10^3/uL 4.8-10.8 Red Blood Count 5.36 10^6/uL 4.0-5.4 Hemoglobin 15.3 g/dL 14.0-18.0 Hematocrit 45 % 42-52 Mean Corpuscular Volume 85 fL 80-94 Mean Corpuscular Hemoglobin 28 pg 27-31 Mean Corpuscular HGB Conc 34 g/dL 31-36 Red Cell Distribution Width 15 % 10.5-15 Platelet Count 316 10^3/uL 150-450 Mean Platelet Volume 8 um3 7.4-10.4 Comp Metabolic Panel 12/04/2013 Sodium 136 mmol/L 133-145 Potassium 4.4 mmol/L 3.7-5.6 Chloride 96 mmol/L Low 101-111 Co2 Carbon Dioxide 33 mmol/L High 22-32 Anion Gap 7 mmol/L 2-11 Glucose 97 mg/dL 70-100 Blood Urea Nitrogen 11 mg/dL 6-24 Creatinine 0.64 mg/dL Low 0.67-1.17 BUN/Creatinine Ratio 17.2 8-20 Calcium 9.1 mg/dL 8.6-10.3 Total Protein 7.1 g/dL 6.4-8.9 Albumin 3.6 g/dL 3.2-5.2 Globulin 3.5 g/dL 2-4 Albumin/Globulin Ratio 1.0 1-3 Total Bilirubin 0.40 mg/dL 0.2-1.0 Alkaline Phosphatase 46 U/L 34-104 Alt 17 U/L 7-52 Ast 13 U/L 13-39 Egfr Non- 139.2 >60 Egfr 179.1 >60 10 Laboratory test finding 12/04/2013 C Reactive Protein 37.06 mg/L High < 5.00 11 1 SEE RESULT BELOW Name: ZAIDA GRIFFITH : [address]: Humberto Cordova MD Acct: [id number] Unit: [id number] AGE: 42 Location: [facility] Re02/07/18 SEX: M Status: REG REF SPEC: [id number] JULISSA: 02/07/18-110[address] [facility] [address]: Humberto Cordova MD REQ: [id number] RECD: 02/07/18-1221 STATUS: SOUT _ ORDERED: LEVEL 4/2 COMMENTS: [id number] FINAL DIAGNOSIS 1. Skin, right anterior lower leg, punch biopsy: -- Cavernous hemangioma. 2. Skin, left posterior lower leg, punch biopsy: -- Cavernous hemangioma. CLINICAL HISTORY No history given GROSS DESCRIPTION 1. The specimen is received in formalin labeled, Right Anterior Lower Leg Lesion, and consists of a 0.6 cm cool-pink scaly to friable circular skin punch excised to a depth of 0.5 cm predominantly surfaced by a 0.6 x 0.5 x 0.4 cm cool-pink to black scaly keratotic nodule. The specimen is bisected and submitted entirely in one cassette. 2. The specimen is received in formalin labeled, Left Posterior Lower Leg Lesion, and consists of a 0.7 x 0.6 cm cool-white scaly bulbous ovoid skin punch excised to a depth of 0.5 cm which is bisected and submitted entirely in one cassette. Signed by and Reported on: Emil Higginbotham MD [address] END OF REPORT DEPARTMENT OF PATHOLOGY, [address] [place] [address] Emil Higginbotham M.D. Director [facility] # [id number] 2 Therapeutic target for the treatment of diabetes mellitus patients is <7% HBA1C, and in selective patients <6.0%. Please refer to [place] [employer] diabetic care guidelines for further information. 3 Because ethnic data is not always readily available, this report includes an eGFR for both -Americans and non- Americans. The National Kidney Disease Education Program (NKDEP) does not endorse the use of the MDRD equation for patients that are not between the ages of 18 and 70, are , have extremes of body size, muscle mass, or nutritional status, or are non- or non-. According to the National Kidney Foundation, irrespective of diagnosis, the stage of the disease is based on the level of kidney function: Stage Description GFR(mL/min/1.73 m(2)) 1 Kidney damage with normal or decreased GFR 90 2 Kidney damage with mild decrease in GFR 60-89 3 Moderate decrease in GFR 30-59 4 Severe decrease in GFR 15-29 5 Kidney failure <15 (or dialysis) 4 Unable to calculate due to low microalbumin 5 >100 to <200 pg/mL: likely compensated congestive heart failure (CHF) 200 to 400 pg/mL: likely moderate CHF >400 pg/mL: likely moderate to severe CHF 6 Desirable: <150 Borderline High: 150-199 High: 200-499 Very High: >500 7 Desirable: <200 Borderline High: 200-239 High: >239 8 Low: <40 Desirable: 40-60 High: >60 9 Desirable: <100 Near Optimal: 100-129 Borderline High: 130-159 High: 160-189 Very High: >189 10 Because ethnic data is not always readily available, this report includes an eGFR for both -Americans and non- Americans. The National Kidney Disease Education Program (NKDEP) does not endorse the use of the MDRD equation for patients that are not between the ages of 18 and 70, are , have extremes of body size, muscle mass, or nutritional status, or are non- or non-. According to the National Kidney Foundation, irrespective of diagnosis, the stage of the disease is based on the level of kidney function: Stage Description GFR(mL/min/1.73 m(2)) 1 Kidney damage with normal or decreased GFR 90 2 Kidney damage with mild decrease in GFR 60-89 3 Moderate decrease in GFR 30-59 4 Severe decrease in GFR 15-29 5 Kidney failure <15 (or dialysis) 11 Acute inflammation: >10.00 Procedures Date CPT Code Description Status 02/07/2018 86424 Each Additional Biopsy Completed 02/07/2018 26501 Biopsy Skin Lesion Single Completed 11/21/2017 01609 Stress ECHO Interpretation/Report Hospital Completed 11/21/2017 69264 Treadmill Interp/Report Only Completed 11/21/2017 61248 Stress Test Supervsn W/Out I/R Completed 11/05/2017 11781 Echocardiogram, Limited Study Completed 10/31/2017 94918 Diffusing Capacity Completed 10/31/2017 01615 Plethysmography Determination Lung Volumes & Per Airway Completed Resist 10/31/2017 29212 Pulmonary Function><Bronchodil Completed 09/30/2017 96805 EKG Tracing & Interpretation Completed 09/10/2017 24440 ECHO Transthorasic Realtime 2D W Doppler & Color Flow Completed Hosp 05/14/2014 73431 Echocardiogram, Limited Study Completed 02/15/2014 95881 Holter Monitoring 24 HR New Completed 12/31/2013 59852 EKG Tracing & Interpretation Completed 11/27/2013 82017 EKG, Interpretation Only Completed 11/26/2013 14800 Color Flow Doppler/Interp & Reprt Completed 11/26/2013 30445 Pulse Wave/Continuous-Interp.RPT Completed 11/26/2013 45898 Echocardiography, Transesophageal, Real Time W/Image 2D Completed W/W/O M-M Encounters Type Date Location Provider CPT E/M Dx Office Visit 12/31/2017 [facility] [address] R06.83 11:00a [facility] G47.33 E66.01 F17.210 Z68.44 Office Visit 12/04/2017 11:30a [facility] Becky Morales, N.P. 06587 I50.23 F17.210 I42.9 E66.01 E11.9 R94.31 Office Visit 09/30/2017 3:00p [facility] Lincoln Bennett, 12892 I50.23 M.D. E66.01 G47.33 I50.9 I42.9 E11.9 R94.31 Office Visit 09/11/2017 3:03p [facility],[place] [address] I50.23 Hospitalists G47.33 E66.01 Z68.45 Office Visit 09/10/2017 3:02p [facility],[place] [address] I50.23 Hospitalists G47.33 R79.89 Z68.45 Office Visit 09/09/2017 2:59p [facility],[place] [address] I50.23 Hospitalists G47.33 R79.89 Z68.45 Office Visit 12/31/2013 9:30a [facility] NESHA Fiore [address]58[address] 425.4 278.01 790.7 799.02 327.23 Office Visit 12/24/2013 2:40p [facility] Iglesia Tidwell, [address]47 682.9 Infectious Diseases M.D. Office Visit 11/27/2013 10:56a [facility] Iglesia Tidwell, 28856 041.02 Infectious Diseases M.D. 790.7 995.91 682.6 719.41 278.00 425.4 Office Visit 11/27/2013 1:38p [facility] Lincoln Bennett, 38491 425.4 M.D. Office Visit 11/27/2013 2:59p [facility], Rivka Mercedes, 38199 038.9 Hospitalists M.D. 682.9 278.01 719.41 Office Visit 11/26/2013 2:58p [facility], Rivka Mercedes, 57310 038.9 Hospitalists M.D. 682.9 278.01 719.41 Office Visit 11/25/2013 2:58p [facility], Rivka Daren, 33935 038.9 Hospitalists M.D. 682.9 278.01 719.41 Office Visit 11/24/2013 2:57p [facility], Rivka Daren, 53890 682.9 Hospitalists M.D. 038.9 719.41 278.01 Office Visit 11/24/2013 9:30a [facility] Iglesia Tidwell, 47971 041.02 Infectious Diseases M.D. 790.7 682.6 719.41 278.00 Office Visit 11/23/2013 2:57p [facility], Becky Morales, 23228 038.9 Hospitalists N.P. 682.9 278.01 486 Plan of Care Future Appointment(s):04/23/2018 8:30 am - Gloria Hobson DNP, RN, [facility] at [facility]02/13/2018 - Gloria Hobson DNP, RN, TWINE WINDER- BCG47.33 Obstructive sleep apnea (adult) (pediatric)New Orders:Sleep StudyFollow up:2 monthsRecommendations:Review of sleep study in detail. Concern related to obesity hypoventilation syndrome and need for other PAP devices, recommend in-lab PAP titration. Needs day study 9AM-4 PM (sleep time) Review of risks of untreated sleep apnea including cardiovascular events: rhythm irregularities, heart attack, stroke; gastro esophageal reflux disease (GERD); diabetes; anxiety, depression; high blood pressure; accidents (machinery and automobile) Recommendation for PAP other treatment modalities NON-PAP including oral appliance/mandibular advancement device, positional strategies , and surgery discussed. Referral for PAP device to be sent to [facility] phone: [phone] Equipment appointment will take about 45 minutes, the DME provider will call you within 5 days to set you up for the device. If you do not hear from them call the Sleep Center. The mask will have a 30-day guarantee, if you have mask problems call the DME provider to have a fitting for adifferent mask. Need distilled water for humidifier CPAP mask and tubing Cleaning Wipe off mask daily (baby wipe-no scent, or warm water) Clean mask, tubing, filter, and water chamber weekly in mild noscent dish soap and water. Hang to dry. So-Clean is an option (not covered by insurance) If you have problems with the air pressure call the sleep center and speak to a nurse. If you have any sleepiness while driving you MUST avoid operating a vehicle or machinery. If you have any further questions , please call the [facility] Center at [phone].Q15.315 Nicotine dependence, cigarettes, uncomplicatedRecommendations:Recommend opfblwodG64.2 Morbid (severe) obesity with alveolar hypoventilationNew Labs:Arterial Blood GasRecommendations:recommend lab after you wake up from sleep. THus have it drawn at 430 or 5 PM.J35.1 Hypertrophy of tonsilsReferral:Philip Diamond MD , OtolaryngologyRecommendations:white tissue on the left tonsil recommend upper airway exam due to tobacco user.Z68.44 Body mass index (BMI) 60.0-69.9, adultNew Labs:Arterial Blood GasRecommendations:Recommend weight loss, consider the medically supervised weight loss program or bariatric surgery Possible obesity hypoventilation syndrome
--- OUTSIDE RECORDS SUMMARY | 2018-03-02 15:50 | XMS REPORT ---
:1975 External Reference #:[id number] Author Organization [facility] Address [address] [place] [address] [place] [address] Phone [phone] Care Team Providers Name Role Phone Chevy Quick MD Primary Care Physician Unavailable Payers Type Date Identification Numbers Payment Provider Subscriber Commercial Effective: Policy Number: Robert Viveros 2013 [id number] PayID: [id number] [address] [place] [address] Problems Description No Information Family History Date Family Member(s) Problem(s) Comments Father due to stroke () Father Alcoholism Mother Hypertension Siblings 6 Social History Type Date Description Comments Marital Status Lives With Lives With Children 2 boys 1 girl Lives With 4 cats 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 member Exercise Type/Frequency Exercises regularly Exercise Type/Frequency [...] Lincoln Calcium 0000 every day Jose Alfredo Benntet M.D. Lisinopril 12/31/ Hx Tablets 2.5mg 30tabs [...] 8 Unknown 0000 - hrs 2017 Ibuprofen 00// Hx Tablets 200mg 100tab as needed Unknown 0000 - s 2017 Vital Signs Date Vital Result Comment 02/07/2018 Height 69 inches 5'9" Weight 420.00 [...] Test Result H/L Range Note Laboratory test finding 10/11/2017 Hemoglobin A1c (Glyco 8.3 % High 4.0- 5.6 1 HGB) Comp Metabolic Panel 10/11/2017 Sodium 136 [...] Egfr Non- 141.6 >60 Egfr 182.1 >60 2 Urine Microalbumin Random 10/11/2017 Ur Microalbumin (mg/L) < 15.0 mg/L Urine Creatinine 95.45 mg/dL Urine Microalbumin/Creatinine TNP ug/mg <31 3 Laboratory test finding 10/11/2017 B-Type Natriuretic Peptide BNP 6 pg/mL 4 Magnesium 1.8 mg/dL Low 1.9-2.7 CBC W/Auto [...] 0.2 Lipid Panel 10/11/2017 Triglycerides 71 mg/dL 5 Cholesterol 103 mg/dL 6 HDL Cholesterol 39.9 mg/dL 7 LDL Cholesterol 49 mg/dL 8 [facility] - [facility] 10/11/2017 Creatine Kinase(CK) 38 U/L 10-223 CBC No Diff 12/04/2013 White Blood Count [...] Egfr Non- 139.2 >60 Egfr 179.1 >60 9 Laboratory test finding 12/04/2013 C Reactive Protein 37.06 mg/L High < 5.00 10 1 Therapeutic target for the treatment of diabetes mellitus patients is <7% HBA1C, and in selective patients <6.0%. Please refer to [place] [employer] diabetic care guidelines for further information. 2 Because ethnic data is not always readily [...] 15-29 5 Kidney failure <15 (or dialysis) 3 Unable to calculate due to low microalbumin 4 >100 to <200 pg/mL: likely compensated congestive heart failure (CHF) 200 to 400 pg/mL: likely moderate CHF >400 pg/mL: likely moderate to severe CHF 5 Desirable: <150 Borderline High: 150-199 High: 200-499 Very High: >500 6 Desirable: <200 Borderline High: 200-239 High: >239 7 Low: <40 Desirable: 40-60 High: >60 8 Desirable: <100 Near Optimal: 100-129 Borderline High: 130-159 High: 160-189 Very High: >189 9 Because ethnic data is not always readily [...] 15-29 5 Kidney failure <15 (or dialysis) 10 Acute inflammation: >10.00 Procedures Date CPT Code Description Status 02/07/2018 60301 Each Additional Biopsy Completed 02/07/2018 72080 Biopsy Skin Lesion Single Completed 11/21/2017 43223 Stress ECHO Interpretation/Report Hospital Completed 11/21/2017 07650 Treadmill Interp/Report Only Completed 11/21/2017 04757 Stress Test Supervsn W/Out I/R Completed 11/05/2017 57005 Echocardiogram, Limited Study Completed 10/31/2017 82035 Diffusing Capacity Completed 10/31/2017 22067 Plethysmography Determination Lung Volumes & Per Airway Completed Resist 10/31/2017 97435 Pulmonary Function><Bronchodil Completed 09/30/2017 09182 EKG Tracing & Interpretation Completed 09/10/2017 65676 ECHO Transthorasic Realtime 2D W Doppler & Color Flow Completed Hosp 05/14/2014 19058 Echocardiogram, Limited Study Completed 02/15/2014 90076 Holter Monitoring 24 HR New Completed 12/31/2013 11212 EKG Tracing & Interpretation Completed 11/27/2013 92776 EKG, Interpretation Only Completed 11/26/2013 66811 Color Flow Doppler/Interp & Reprt Completed 11/26/2013 11090 Pulse Wave/Continuous-Interp.RPT Completed 11/26/2013 35526 Echocardiography, Transesophageal, Real Time W/Image 2D Completed W/W/O M-M Encounters Type Date Location Provider CPT E/M Dx Office Visit 12/31/2017 [facility] [place] [address] R06.83 11:00a [facility] G47.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 15893 I50.23 F17.210 I42.9 E66.01 E11.9 R94.31 Office Visit 09/30/2017 3:00p [facility] Lincoln Bennett, 75837 I50.23 M.DJosh E66.01 G47.33 I50.9 I42.9 E11.9 R94.31 Office Visit 09/11/2017 3:03p [facility],[place] [address] I50.23 Hospitalists G47.33 E66.01 Z68.45 Office Visit 09/10/2017 3:02p [facility],[place] [address] I50.23 Hospitalists G47.33 R79.89 Z68.45 Office Visit 09/09/2017 2:59p [facility],[place] [address] I50.23 Hospitalists G47.33 R79.89 Z68.45 Office Visit 12/31/2013 9:30a [facility] NESHA Fiore 25300 425.4 278.01 790.7 799.02 327.23 Office Visit 12/24/2013 2:40p [facility] Iglesia Tidwell, 77048 682.9 Infectious Diseases M.D. Office Visit 11/27/2013 10:56a [facility] Iglesia Tidwell, 68082 041.02 Infectious Diseases M.D. 790.7 995.91 682.6 719.41 278.00 425.4 Office Visit 11/27/2013 1:38p [facility] Lincoln Bennett, 83361 425.4 M.D. Office Visit 11/27/2013 2:59p [facility], Rivka Mercedes, 60708 038.9 Hospitalists M.D. 682.9 278.01 719.41 Office Visit 11/26/2013 2:58p [facility], Rivka Mercedes, 78499 038.9 Hospitalists M.D. 682.9 278.01 719.41 Office Visit 11/25/2013 2:58p [facility], Rivka Mercedes, 32902 038.9 Hospitalists M.D. 682.9 278.01 719.41 Office Visit 11/24/2013 2:57p [facility], Rivka Mercedes, 54001 682.9 Hospitalists M.D. 038.9 719.41 278.01 Office Visit 11/24/2013 9:30a [facility] Iglesia Tidwell, 63162 041.02 Infectious Diseases M.D. 790.7 682.6 719.41 278.00 Office Visit 11/23/2013 2:57p [facility], Becky Morales, [address]5026 038.9 Hospitalists N.P. 682.9 278.01 486 Plan of Care Future Appointment(s):02/13/2018 10:15 am - Gloria Hobson DNP, RN, COAL WHEELER-BC at [facility]02/07/2018 - Humberto Cordova M.D.D48.5 Neoplasm of uncertain behavior of skinFollow up:As needed
--- OUTSIDE RECORDS SUMMARY | 2018-03-02 15:50 | XMS REPORT | Continuity of Care Document ---
:1975 External Reference #:[id number] Author Name Lincoln Fallon MD Address [address] [place] [address] Care Team Providers Name Role Phone Humberto Cordova M.D. 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 Tobacco Use Start: Unknown Current Cigarette Smoker 1 Pack Daily Tobacco Use Start: Unknown Never Smoked Cigars Tobacco Use Start: Unknown Never Smoked A Pipe Smokeless Tobacco Never Used Smokeless Tobacco ETOH Use Never consumed alcohol Tobacco Use Start: Unknown Patient is a current smoker, smokes every day Smoking Status Reviewed: 02/21/18 Patient is a current smoker, smokes every day Allergies, Adverse Reactions, Alerts Description No Known Drug Allergies Medications Medication Date Status Form Strength Qnty SIG Indications Ordering Provider Furosemide Active Tablets 20mg Mauser, 000 Lincoln Hampton Metoprolol Active Tablets ER 25mg Mauser, Succinate ER 000 24HR Lincoln Hampton Atorvastatin Active Tablets 40mg Take 1 Unknown Calcium 000 Tablet By Mouth Every Day Glimepiride Active Tablets 4mg Bud Quick MD Lisinopril Active Tablets 10mg Makaylauser 000 Lincoln Hampton Metformin HCL Active Tablets 1000mg Take 1 Unknown 000 Tablet By Mouth Twice A Day With Meals Freestyle Lite Active Strips Test Unknown Test 000 Twice A Day Ibuprofen Active Tablets 800mg Take 1 Unknown 000 Tablet By Mouth Three Times A Day as Needed With Food Flovent HFA Active Aerosol 220mcg/Act Quick, Bud Reece MD Immunizations Description No Information Available Vital Signs Date Vital Result Comment 02/21/2018 9:08am Weight 426.00 lb Weight 193.234 kg Height 69 inches 5'9" Height in cm's 175.3 cm BMI (Body Mass Index) 62.9 kg/m2 Results Test Date Facility Test Result H/L Range Note Laboratory test 02/21/2018 [facility] < pending> finding c/o Department of [place] [address] [phone] Procedures Description No Information Available Encounters Type Date Location Provider Dx Diagnosis Office Visit 02/21/2018 [place],After Lincoln Nguyen0.9 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
[2018-03-02 16:33] LABS: ABS Basophils 0.1 10^3/ul (0-0.2); ABS Eosinophils 0.2 10^3/ul (0-0.6); ABS Lymphocytes 2.4 10^3/ul (1.0-4.8); ABS Monocytes 0.7 10^3/ul (0-0.8); ABS Nucleated RBC 0 10^3/ul; Hematocrit 47 % (42-52); Lymphocyte % 28.7 % (25-47); Mean Corpuscular HGB Conc 34 g/dl (31-36); Mean Corpuscular Hemoglobin 30 pg (27-31); Mean Corpuscular Volume 87 fL (80-94); Mean Platelet Volume 7.7 fL (7.4-10.4); Nucleated Red Blood Cells % 0.1; Platelet Count 223 10^3/ul (150-450); Red Blood Count 5.36 10^6/ul (4.00-5.40); Red Cell Distribution Width 14 % (10.5-15); White Blood Count 8.3 10^3/ul (3.5-10.8)
[2018-03-02 16:51] LABS: EGFR Non-African American 144.3 (>60)
--- NOTE | 2018-03-02 17:08 | ED ---
Back Pain - HPI Summary HPI Summary: Pt is a 42 year old M presenting to the ED with a chief complaint of back and leg pain. The pt reports pain in his lower back onset 02/28/2018 with vomiting and fever, and his lower extremity swelled up and became red today. Pt states it started in his testicle but he has no trouble urinating. - History of Current Complaint Chief Complaint: EDGeneral Stated Complaint: BACK PAIN Time Seen by Provider: 03/02/18 16:57 Hx Obtained From: Patient Onset/Duration: Sudden Onset, Lasting Days - since 02/28/2018, Still Present, Worse Since - today Onset/Duration: Started Days Ago Timing: Constant Back Pain Location: Is Discrete @ - lower back, Radiates To - bilateral legs Severity Initially: Moderate Severity Currently: Moderate Pain Intensity: 7 Pain Scale Used: 0-10 Numeric Character: Throbbing Aggravating Symptom(s): Movement, Walking Alleviating Symptom(s): Rest Associated Signs And Symptoms: Positive: Swelling, Redness, Fever. Negative: Bladder Incontinence - Allergies/Home Medications Allergies/Adverse Reactions: Allergies Allergy/AdvReac Type Severity Reaction Status Date / Time No Known Drug Allergies Allergy See Comment Verified 03/02/18 15:43 [place] Allergy Severe Swelling Uncoded 03/02/18 15:43 PMH/Surg Hx/FS Hx/Imm Hx Previously Healthy: No Endocrine/Hematology History: Reports: Hx Anticoagulant Therapy, Hx Diabetes - DM x 3 years. On Rx, FBS 75-110, Denies: Hx Thyroid Disease Cardiovascular History: Denies: Hx Angina, Hx Congestive Heart Failure, Hx Coronary Artery Disease, Hx Deep Vein Thrombosis, Hx Hypercholesterolemia, Hx Hypertension, Hx Myocardial Infarction, Hx Pacemaker/ICD, Hx Valvular Heart Disease Respiratory History: Reports: Hx Sleep Apnea Denies: Hx Asthma, Hx Chronic Obstructive Pulmonary Disease (COPD), Hx Lung Cancer GI History: Denies: Hx Gall Bladder Disease, Hx Gastrointestinal Bleed, Hx Ulcer, Hx Urosepsis History: Denies: Hx Kidney Stones, Hx Renal Disease Musculoskeletal History: Reports: Hx Back Problems Sensory History: Reports: Hx Contacts or Glasses - when driving Denies: Hx Hearing Aid Opthamlomology History: Reports: Hx Contacts or Glasses - when driving Neurological History: Denies: Hx Dementia, Hx Migraine, Hx Seizures, Hx Transient Ischemic Attacks (TIA) Psychiatric History: Reports: Hx Depression Denies: Hx Anxiety, Hx Schizophrenia, Hx Bipolar Disorder - Immunization History Date of Tetanus Vaccine: utd Date of Influenza Vaccine: none Infectious Disease History: No Infectious Disease History: Denies: Hx Clostridium Difficile, Hx Hepatitis, Hx Human Immunodeficiency Virus (HIV), Hx of Known/Suspected MRSA, Hx Shingles, Hx Tuberculosis, History Other Infectious Disease, Traveled Outside the [place] in Last 30 Days - Family History Known Family History: Positive: Cardiac Disease, Hypertension, Diabetes, Respiratory Disease, Seizure Disorder - Social History Alcohol Use: None Substance Use Type: Reports: Marijuana Substance Use Comment - Amount & Last Used: 09/14/16 Hx Tobacco Use: Yes Smoking Status (MU): Current Every Day Smoker Type: Cigarettes Amount Used/How Often: 1 PPD Review of Systems Positive: Fever Positive: Vomiting Positive: Myalgia - lower back pain, Edema - lower extremities All Other Systems Reviewed And Are Negative: Yes Physical Exam - Summary Physical Exam Summary: Appearance: Morbidly obese, Well-nourished, lying in bed comfortable Skin: Warm, dry, Acutely erythematous and warm area on R inner thigh extending to the proximal leg. No adenopathy in the groin. No sign of abscess. Eyes: sclera anicteric, no conjunctival pallor ENT: mucous membranes moist Neck: deferred Respiratory: No signs of respiratory distress Cardiovascular: Appears well perfused, pulses are nml Abdomen: deferred Musculoskeletal: lower extremities signs of venostasis. Neurological: Awake and alert, mentation is normal, speech is fluent and appropriate Psychiatric: affect is normal, does not appear anxious or depressed Triage Information Reviewed: Yes Vital Signs On Initial Exam: Initial Vitals Temp Pulse Resp BP Pulse Ox 96.9 F 100 16 140/86 95 03/02/18 15:40 03/02/18 15:40 03/02/18 15:40 03/02/18 15:40 03/02/18 15:40 Vital Signs Reviewed: Yes Diagnostics - Vital Signs Vital Signs Temp Pulse Resp BP Pulse Ox 03/02/18 15:40 96.9 F 100 16 140/86 95 - Laboratory Lab Results: Lab Results 03/02/18 03/02/18 03/02/18 Range/Units 16:25 16:25 16:25 WBC 8.3 (3.5-10.8) 10^3/ul RBC 5.36 (4.00-5.40) 10^6/ul Hgb 16.0 (14.0-18.0) g/dl Hct 47 (42-52) % MCV 87 (80-94) fL MCH 30 (27-31) pg MCHC 34 (31-36) g/dl RDW 14 (10.5-15) % Plt Count 223 (150-450) 10^3/ul MPV 7.7 (7.4-10.4) fL Neut % (Auto) 60.0 (38-83) % Lymph % (Auto) 28.7 (25-47) % [place] % (Auto) 8.4 H (0-7) % Eos % (Auto) 2.0 (0-6) % Baso % (Auto) 0.9 (0-2) % Absolute Neuts (auto) 5.0 (1.5-7.7) 10^3/ul Absolute Lymphs (auto) 2.4 (1.0-4.8) 10^3/ul Absolute Monos (auto) 0.7 (0-0.8) 10^3/ul Absolute Eos (auto) 0.2 (0-0.6) 10^3/ul Absolute Basos (auto) 0.1 (0-0.2) 10^3/ul Absolute Nucleated RBC 0 10^3/ul Nucleated RBC % 0.1 INR (Anticoag Therapy) 1.00 (0.77-1.02) APTT 31.4 (26.0-36.3) seconds Sodium 132 L (135-145) mmol/L Potassium 4.0 (3.5-5.0) mmol/L Chloride 99 L (101-111) mmol/L Carbon Dioxide 24 (22-32) mmol/L Anion Gap 9 (2-11) mmol/L BUN 10 (6-24) mg/dL Creatinine 0.61 L (0.67-1.17) mg/dL Est GFR ( Amer) 174.6 (>60) Est GFR (Non-Af Amer) 144.3 (>60) BUN/Creatinine Ratio 16.4 (8-20) Glucose 413 H (70-100) mg/dL Lactic Acid (0.5-2.0) mmol/L Calcium 8.8 (8.6-10.3) mg/dL Total Bilirubin 0.40 (0.2-1.0) mg/dL AST 16 (13-39) U/L ALT 32 (7-52) U/L Alkaline Phosphatase 50 (34-104) U/L Troponin I 0.00 (<0.04) ng/mL C-Reactive Protein 191.52 H (<8.01) mg/L Total Protein 6.5 (6.4-8.9) g/dL Albumin 3.4 (3.2-5.2) g/dL Globulin 3.1 (2-4) g/dL Albumin/Globulin Ratio 1.1 (1-3) 03/02/18 Range/Units 16:25 WBC (3.5-10.8) 10^3/ul RBC (4.00-5.40) 10^6/ul Hgb (14.0-18.0) g/dl Hct (42-52) % MCV (80-94) fL MCH (27-31) pg MCHC (31-36) g/dl RDW (10.5-15) % Plt Count (150-450) 10^3/ul MPV (7.4-10.4) fL Neut % (Auto) (38-83) % Lymph % (Auto) (25-47) % [place] % (Auto) (0-7) % Eos % (Auto) (0-6) % Baso % (Auto) (0-2) % Absolute Neuts (auto) (1.5-7.7) 10^3/ul Absolute Lymphs (auto) (1.0-4.8) 10^3/ul Absolute Monos (auto) (0-0.8) 10^3/ul Absolute Eos (auto) (0-0.6) 10^3/ul Absolute Basos (auto) (0-0.2) 10^3/ul Absolute Nucleated RBC 10^3/ul Nucleated RBC % INR (Anticoag Therapy) (0.77-1.02) APTT (26.0-36.3) seconds Sodium (135-145) mmol/L Potassium (3.5-5.0) mmol/L Chloride (101-111) mmol/L Carbon Dioxide (22-32) mmol/L Anion Gap (2-11) mmol/L BUN (6-24) mg/dL Creatinine (0.67-1.17) mg/dL Est GFR ( Amer) (>60) Est GFR (Non-Af Amer) (>60) BUN/Creatinine Ratio (8-20) Glucose (70-100) mg/dL Lactic Acid 3.0 H* (0.5-2.0) mmol/L Calcium (8.6-10.3) mg/dL Total Bilirubin (0.2-1.0) mg/dL AST (13-39) U/L ALT (7-52) U/L Alkaline Phosphatase (34-104) U/L Troponin I (<0.04) ng/mL C-Reactive Protein (<8.01) mg/L Total Protein (6.4-8.9) g/dL Albumin (3.2-5.2) g/dL Globulin (2-4) g/dL Albumin/Globulin Ratio (1-3) Result Diagrams: 03/02/18 16:25 03/02/18 16:25 Lab Statement: Any lab studies that have been ordered have been reviewed, and results considered in the medical decision making process. - Radiology Chest xray Radiology Interpretation Completed By: Radiologist Summary of Radiographic Findings: Hazy densities overlying the bilateral lungs could be due to pulmonary edema,. pneumonitis or simply be the consequence of the patient's body habitus preventing adequate. beam penetration. - EKG 1819 Cardiac Rate: NL - 94bpm EKG Rhythm: Sinus Rhythm ST Segment: Normal Ectopy: None Back Pain Course/Dx - Course Course Of Treatment: Pt is a 42 y/o M presenting to the ED with a chief complaint of back and leg pain. He has been dx'ed with a UTI in the past but presently has no urinary sx. He has been septic before as well. The pt's legs are erythematous and swollen. Discharge - Sign-Out/Discharge Documenting (check all that apply): Patient Departure - admit - Discharge Plan Condition: Stable Disposition: ADMITTED TO [facility] Referrals: Abdelrahman ROE,Chevy Garcia [Primary Care Provider] - - Attestation Statements Document Initiated by Scribe: Yes Documenting Scribe: Monika Hoover Provider For Whom Scribe is Documenting (Include Credential): Raffy Savage MD. Scribe Attestation: IMonika, scribed for Raffy Savage MD. on 03/02/18 at 1806. Consult Consult: [id number] Johns about the pts hx and present condition. He will be the accepting physician.
[2018-03-02] MEDS ORDERED: Insulin REGULAR(*) 1 UNITS UNIT SUBCUT ONE (17:10)
[2018-03-02] MEDS ORDERED: NS 0.9% 1000 ML* 3,000 ML IV ONE (17:10)
[2018-03-02] MEDS ORDERED: Vancomycin(*) 1,000 MG in NS 0.9% 250 ML* 250 ML IVPB ONE ×2 (17:29→20:30)
[2018-03-02] MEDS ORDERED: Cefepime(*) 1 GM in NS 0.9% 50 ML* 50 ML IVPB ONE (17:29)
--- NOTE | 2018-03-02 17:46 | RAD ---
INDICATION: Sepsis COMPARISON: None. TECHNIQUE: Single AP portable view of the chest was obtained. FINDINGS: Image quality is compromised due to the relative inferiority of a portable chest x-ray. The heart and mediastinum exhibit normal size and contour. There are hazy densities overlying the bilateral lungs. This could be due to pulmonary edema or simply the patient's large body habitus preventing adequate penetration of the x-ray beam. Visualized bones are normal for the patient's age. IMPRESSION: Hazy densities overlying the bilateral lungs could be due to pulmonary edema, pneumonitis or simply be the consequence of the patient's body habitus preventing adequate beam penetration.
[2018-03-02] MEDS ORDERED: Docusate CAP* 100 MG PO PRN (18:03)
[2018-03-02] MEDS ORDERED: Al Hydrox/Mg Hydrox/Simet LIQ* 30 ML UDC PO PRN (18:03)
[2018-03-02] MEDS ORDERED: Ondansetron INJ* 2 MG/ML VIAL IV PRN (18:03)
[2018-03-02] MEDS ORDERED: Senna TAB PO PRN (18:03)
[2018-03-02] MEDS ORDERED: Acetaminophen TAB* 325 MG PO PRN (18:03)
[2018-03-02] MEDS ORDERED: Albuterol 2.5 MG/3 ML NEB.SOL* (0.083%) INH PRN (18:03)
[2018-03-02] MEDS ORDERED: Albuterol HFA INHALER* 8 gm MDI INH PRN (18:14)
[2018-03-02] MEDS ORDERED: Dextrose 50% Syringe 50 ML* 25 GM/50 ML SYRINGE IV PUSH PRN (18:19)
[2018-03-02] MEDS: oxyCODONE/Acetamin 5/325 MG* TAB PO PRN ×2 (18:49→21:50)
[2018-03-02] MEDS ORDERED: Furosemide TAB* 20 MG PO SCH (19:00)
[2018-03-02] MEDS ORDERED: Vancomycin per Pharmacy* NOTE FOLLOW UP SCH (19:00)
[2018-03-02] MEDS: Metoprolol Succinate XL TAB* 25 MG PO SCH (19:47)
[2018-03-02] MEDS: Enoxaparin(*) 40 MG/0.4 ML SYR SUBCUT SCH (19:47)
[2018-03-02] MEDS: Lisinopril TAB* 10 MG PO SCH (19:47)
[2018-03-02] MEDS: Aspirin 81 mg CHEW TAB* 81 MG TAB.CHEW PO SCH (19:47)
[2018-03-02] MEDS: Cefepime 1 GM in Dextrose(*) 1 GM/50 ML BAG IV SCH (20:06)
[2018-03-02] MEDS: Insulin LISPRO* 1 UNITS UNIT SUBCUT SCH (21:23)
--- NOTE | 2018-03-02 21:27 | HP ---
AMENDED REPORT NOW INCLUDES COSIGNER DESIGNATION CC: Dr. Chevy Quick.* HISTORY AND PHYSICAL: DATE OF ADMISSION: 03/02/18 PRIMARY CARE PROVIDER: Dr. Chevy Quick. CAT BREEDER: Dr. Bennett. ATTENDING PHYSICIAN: Dr. Abram Reilly * (dictated by Anna Menjivar NP). CHIEF COMPLAINT: 1. Low back pain, radiating to the right testicle and right leg. 2. Right leg swelling and redness. HISTORY OF PRESENT ILLNESS: Mr. Viveros is a 42-year-old male with past medical history of diabetes mellitus, type 2; CHF; obstructive sleep apnea; and morbid obesity, who presents to the emergency room today with complaints of low back pain, right leg pain and right leg swelling and redness. He reports that he began having right back and testicle pain on 02/28/18, and the same day, he had multiple episodes of emesis and he had a fever up to 102. He continued to experience pain, though today he noted that his right leg was significantly red and swollen. He reports having cellulitis multiple times in the past, at least one of those times, he developed sepsis. There are no changes in appetite, no chest pain, no shortness of breath, no cough, no dysuria or urinary frequency, and no neuro deficits. He is able to walk on the legs, although he does report pain while ambulating. The patient reports having two skin tags removed recently , one on the posterior left leg and another on the right tiwari. These wounds have not completely healed, though the patient and his have noted any signs of infection prior to today. While in the emergency room today, the patient was noted to have a normal white blood count, although had an elevated lactic acid. He was given IV fluids and received a dose of cefepime and a dose of vanco. He had a chest x-ray, which was essentially unremarkable, and an EKG, which was unremarkable. Because of the concern for cellulitis, the hospitalist service was asked to evaluate for admission. PAST MEDICAL HISTORY: 1. Diabetes mellitus, type 2. 2. Congestive heart failure. 3. Obstructive sleep apnea. 4. Morbid obesity. PAST SURGICAL HISTORY: None. HOME MEDICATIONS: 1. Albuterol MDI 2 puffs q.4 hours p.r.n. 2. Aspirin 81 mg p.o. daily. 3. Atorvastatin 40 mg p.o. daily. 4. Furosemide 20 mg p.o. 5 days per week. 5. Glimepiride 8 mg p.o. daily. 6. Lisinopril 10 mg p.o. daily. 7. Metformin 1000 mg p.o. b.i.d. 8. Metoprolol succinate 25 mg p.o. daily. ALLERGIES: No known drug allergies. FAMILY HISTORY: Mother is alive and has a medical history remarkable for cervical cancer. Father at the age 84 due to a CVA. He denies any further family history of coronary artery disease, diabetes, or cancer. SOCIAL HISTORY: The patient has a 30-pack year smoking history. He denies any alcohol use. He reports using marijuana daily. 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 The patient's , Lina will be his surrogate decision maker in the event he is unable to make his own decisions. Her phone number is [phone]. REVIEW OF SYSTEMS: An 11-point review of systems was performed and all the pertinent positive and negative findings are in the HPI. All other systems are negative. PHYSICAL EXAMINATION GENERAL: Mr. Viveros is a well-developed, well-nourished, obese, white male, sitting up in bed, in no acute distress. He appears his stated age. VITAL SIGNS: Temp 96.9, heart rate 94, respiratory rate 16, oxygen saturation 93 % on room air, blood pressure 152/94. HEENT: Head is atraumatic, normocephalic. Visual wong are grossly intact. Pupils are equal, round, and reactive to light and accommodation. Oral mucous membranes are moist and without lesions. NECK: Full range of motion. Thyroid not palpable. Trachea at midline. No lymphadenopathy. RESPIRATORY: Symmetrical chest expansion. No chest wall deformities. Lungs with mild inspiratory wheezes throughout. No rhonchi, or rubs. CARDIOVASCULAR: Regular rate and rhythm. S1, S2 present. No murmurs, rubs, or gallops. No JVD. ABDOMEN: Soft, nontender to palpation. Bowel sounds normoactive throughout. No bruits appreciated. EXTREMITIES: Skin warm with notable brown discoloration to the left lower extremity. The right lower extremity has mild nonpitting edema with erythema extending from the groin to the ankle. No clubbing or cyanosis. Pedal pulses are 2+ bilaterally. MUSCULOSKELETAL: Full range of motion. No pain or deformity. NEURO: Awake, alert, and oriented x4. Cranial nerves II through XII are grossly intact. He moves all extremities. SKIN: As noted above, there is significant erythema from the right groin to the right ankle which is tender to the touch. On the right anterior lower leg, there is approximately 2 cm x 2 cm healing wound. No purulent drainage. DIAGNOSTIC STUDIES/LABORATORY DATA: WBC 8.3, RBC 5.36, hemoglobin 16, hematocrit 47, platelets 223. INR is 1.00. Sodium 132, potassium 4.0, chloride 99, carbon dioxide 24, BUN 10, creatinine 0.61, glucose 413, lactic acid 3.0. Troponin 0.00. CRP 191. Urinalysis is pending. EKG shows normal sinus rhythm at a rate of 94. No ST changes or other ischemic changes. Chest x-ray shows no active cardiopulmonary disease to my read, though the image is of poor quality due to body habitus. ASSESSMENT AND PLAN: Mr. Viveros is a 42-year-old male with past medical history of diabetes, congestive heart failure, obstructive sleep apnea, and morbid obesity, who presents to the emergency room today with right leg edema and erythema, and was found to have right lower extremity cellulitis. The patient will be admitted inpatient for: 1. Right lower extremity cellulitis. The cellulitis extends from the patient' s groin to his ankle. We will check an ultrasound to rule out DVT, though I think DVT is unlikely. I suspect that the cellulitis resulted from his recent skin tag removal, although that wound is dry and cannot be cultured. The patient has a normal white blood count and has been afebrile. His lactic acid is elevated, and he is being given 3 liters of normal saline in the emergency room. Lactic will be rechecked around 20:00. The patient was given cefepime and vancomycin in the emergency room, and I will continue these. The vancomycin will be per Pharmacy protocol. 2. Diabetes. The patient's glucose is markedly elevated in the emergency room. He has been given 14 units of regular insulin by the emergency room physician. We will continue to his monitor his blood sugar a.c. and h.s. He will receive sliding scale lispro. I will hold his glimepiride and metformin at this point. 3. Congestive heart failure. The patient does not appear to be in exacerbation at this time. We will check daily weights and strict intake and output. He can continue his furosemide, metoprolol, and lisinopril. 4. Obstructive sleep apnea. The patient does not currently use the CPAP, but reports that he is in the process of being set up for a CPAP. I will not place him on CPAP at this point since he has not started home therapy. 5. Morbid obesity. The patient has a BMI of 63. Supportive care. 6. Fluids, electrolytes, and nutrition: The patient's sodium is slightly low, though he is being hydrated in the emergency room with normal saline, otherwise he does not require any repletion. He will be given the 3 liters of fluid in the emergency room, and no further fluid after that as he does have a history of congestive heart failure. I have placed him on a consistent carbohydrate diet. 7. Code status: The patient will be a full code. 8. DVT prophylaxis: According to the DVT risk assessment, the patient scores a 4, putting him at high risk. I have placed him on Lovenox. TIME SPENT: Approximately 60 minutes were spent on this admission, greater than half of that time spent with the patient and his obtaining my history , performing my physical exam, and reviewing the plan of care. The case has been reviewed with my attending, Dr. Reilly, who is in agreement with the plan of care. ANNA MENJIVAR NP [id number]/[facility] #: [id number] AMIRAH
[2018-03-03] MEDS: oxyCODONE/Acetamin 5/325 MG* TAB PO PRN (02:22)
[2018-03-03] MEDS: Vancomycin(*) 1,000 MG in NS 0.9% 250 ML* 250 ML IVPB SCH ×5 (02:59→23:15)
[2018-03-03] MEDS ORDERED: Cyclobenzaprine TAB* 10 MG PO ONE (03:20)
[2018-03-03 07:12] LABS: ABS Basophils 0 10^3/ul (0-0.2); ABS Eosinophils 0.2 10^3/ul (0-0.6); ABS Lymphocytes 3.4 10^3/ul (1.0-4.8); ABS Monocytes 0.6 10^3/ul (0-0.8); ABS Neutrophils 3.5 10^3/ul (1.5-7.7); ABS Nucleated RBC 0 10^3/ul; Eosinophil % 2.6 % (0-6); Hematocrit 42 % (42-52); Hemoglobin 14.6 g/dl (14.0-18.0); Lymphocyte % 44.3 % (25-47); Mean Corpuscular HGB Conc 35 g/dl (31-36); Mean Corpuscular Hemoglobin 30 pg (27-31); Mean Corpuscular Volume 86 fL (80-94); Nucleated Red Blood Cells % 0.1; Platelet Count 199 10^3/ul (150-450); Red Blood Count 4.92 10^6/ul (4.00-5.40); Red Cell Distribution Width 13 % (10.5-15); White Blood Count 7.7 10^3/ul (3.5-10.8)
[2018-03-03 07:21] LABS: EGFR Non-African American 190.2 (>60)
[2018-03-03] MEDS ORDERED: Ketorolac INJ* 30 MG/ML 1 ML VIAL IV PUSH ONE (08:27)
[2018-03-03] MEDS: Cefepime 1 GM in Dextrose(*) 1 GM/50 ML BAG IV SCH ×2 (08:54→22:00)
[2018-03-03] MEDS: Insulin LISPRO* 1 UNITS UNIT SUBCUT SCH ×6 (08:54→22:31)
[2018-03-03] MEDS: Metoprolol Succinate XL TAB* 25 MG PO SCH (08:55)
[2018-03-03] MEDS: Aspirin 81 mg CHEW TAB* 81 MG TAB.CHEW PO SCH (08:55)
[2018-03-03] MEDS: Lisinopril TAB* 10 MG PO SCH (08:55)
[2018-03-03] MEDS: Nicotine PATCH 21 MG/24 HR* PATCH TRANSDERM SCH (15:49)
--- NOTE | 2018-03-03 16:51 | PN ---
Subjective Date of Service: 03/03/18 Interval History: Mr. Viveros reports feeling better today. He states that his pain has decreased in his leg, though he is still having significant right back and hip pain. Toradol was effective at reducing his pain. Him and his feel as though the erythema has improved since yesterday. The area is much less tender to palpation. He is frustrated because of his IV pump beeping, though he denies further complaints. Denies CP, SOB, N/V/D, dizziness. Family History: Unchanged from Admission Social History: Unchanged from Admission Past Medical History: Unchanged from Admission Objective Active Medications: Acetaminophen (Tylenol Tab*) 650 mg PO Q4H PRN Al Hydrox/Mg Hydrox/Simethicone (Maalox Plus*) 30 ml PO Q6H PRN Albuterol (Ventolin 2.5 Mg/3 Ml Neb.Susy*) 2.5 mg INH [id number] AWAKE PRN Albuterol (Ventolin Hfa Inhaler*) 2 puff INH Q4HR PRN Aspirin (Aspirin 81 Mg Chew Tab*) 81 mg PO DAILY ANDREAS Atorvastatin Calcium (Lipitor*) 40 mg PO 1700 ANDREAS Dextrose (D50w Syringe 50 Ml*) 12.5 gm IV PUSH .FOR FS < 60 - SS PRN Docusate Sodium (Colace Cap*) 100 mg PO BID PRN Enoxaparin Sodium (Lovenox(*)) 40 mg SUBCUT Q24H ANDREAS Furosemide (Lasix Tab*) 20 mg PO .5 TIMES A WEEK ANDREAS Cefepime HCl (Maxipime 1 Gm In Dextrose Duplex (*)) 1 gm in 50 mls @ 100 mls/ hr IV Q12H ANDREAS Vancomycin HCl 1,000 mg/ (Sodium Chloride) 250 mls @ 166.667 mls/hr IVPB Q6HR ANDREAS Insulin Human Lispro (Humalog*) 0 units SUBCUT ACHS ANDREAS; Protocol Insulin Human Lispro (Humalog*) 3 units SUBCUT ACHS ANDREAS Lisinopril (Prinivil Tab*) 10 mg PO DAILY ANDREAS Metformin HCl (Glucophage*) 1,000 mg PO BID ANDREAS Metoprolol Succinate (Toprol Xl Tab*) 25 mg PO DAILY ANDREAS Nicotine (Nicotine Patch 21 Mg/24 Hr*) 1 patch TRANSDERM DAILY@0800 ANDREAS Ondansetron HCl (Zofran Inj*) 4 mg IV Q4H PRN Oxycodone/Acetaminophen (Percocet 5/325 Tab*) 1 tab PO Q4H PRN Pharmacy Consult (Vancomycin Per Pharmacy*) 1 note FOLLOW UP .VANC PER PHARMACY [facility] Pharmacy Profile Note (Vancomycin Trough Check) 1 note FOLLOW UP ONCE ONE Pharmacy Profile Note (Nicotine Patch Removal Note*) 1 note PATCH OFF 2100 [facility] Senna (Senokot Tab*) 1 tab PO BID PRN Vital Signs - 8 hr 03/03/18 03/03/18 08:57 11:58 Temperature 98.6 F 97.7 F Pulse Rate 84 78 Respiratory 19 20 Rate Blood Pressure 127/77 112/56 (mmHg) O2 Sat by Pulse 94 93 Oximetry Oxygen Devices in Use Now: None Appearance: Middle-aged male laying in bed in NAD Eyes: No Scleral Icterus Ears/Nose/Mouth/Throat: Mucous Membranes Moist Neck: NL Appearance and Movements; NL JVP Respiratory: Symmetrical Chest Expansion and Respiratory Effort, Clear to Auscultation Cardiovascular: NL Sounds; No Murmurs; No JVD, RRR Abdominal: NL Sounds; No Tenderness; No Distention Extremities: No Clubbing, Cyanosis Skin: - - Erythema encompassing most of the anterior RLE; both color and size decreased from yesterday; small healing wound to anterior tiwari Neurological: Alert and Oriented x 3 Lines/Tubes/Other Access: Clean, Dry and Intact Peripheral IV Nutrition: Taking PO's Result Diagrams: 03/03/18 06:34 03/03/18 06:34 Assess/Plan/Problems-Billing Assessment: Mr. Viveros is a 42yo with PMH of CHF, DM2, LUCITA, and morbid obesity who presented to the ED with c/o RLE erythema and pain with associated R back and hip pain and was found to have RLE cellulitis. - Patient Problems (1) Cellulitis of right leg Current Visit: Yes Status: Acute Priority: High Code(s): L03.115 - CELLULITIS OF RIGHT LOWER LIMB SNOMED Code(s): 861710064 Comment: - Likely 2/2 skin tag removal as wound is still present - Clinically improving - Will check xray of lumbar spine and right hip d/t pain - Continue vanco, cefepime (2) Elevated lactic acid level Current Visit: Yes Status: Acute Priority: High Code(s): R79.89 - OTHER SPECIFIED ABNORMAL FINDINGS OF BLOOD CHEMISTRY SNOMED Code(s): 9595354 Comment: - On admission 3.0, resolved to 1.6 with IVF - No evidence of sepsis (3) Diabetes mellitus, type 2 Current Visit: Yes Status: Chronic Priority: Medium Comment: - Significant hyperglycemia since admission; 240+ - Check Hgb A1C - Hold glimepiride - Continue lispro SS and add 3 units AC - Resume metformin (4) Chronic systolic congestive heart failure Current Visit: Yes Status: Chronic Priority: Medium Code(s): I50.22 - CHRONIC SYSTOLIC (CONGESTIVE) HEART FAILURE SNOMED Code(s): 743840297 Comment: - No acute exacerbation - Continue lisinopril, metoprolol, lasix (5) LUCITA (obstructive sleep apnea) Current Visit: Yes Status: Chronic Priority: Medium Code(s): G47.33 - OBSTRUCTIVE SLEEP APNEA (ADULT) (PEDIATRIC) SNOMED Code(s): 93731592 Comment: - Patient reports he is currently in the process of being fitted for a CPAP (6) Morbid obesity with BMI of 60.0-69.9, adult Current Visit: Yes Status: Chronic Priority: Medium Code(s): E66.01 - MORBID (SEVERE) OBESITY DUE TO EXCESS CALORIES; Z68.44 - BODY MASS INDEX (BMI) 60.0-69.9, ADULT SNOMED Code(s): 157522430 Comment: - Supportive care (7) Full code status Current Visit: Yes Status: Acute Priority: High Code(s): Z78.9 - OTHER SPECIFIED HEALTH STATUS SNOMED Code(s): 680555022 (8) DVT prophylaxis Current Visit: Yes Status: Acute Priority: High Code(s): JIT9320 - SNOMED Code(s): 275820932 Comment: - Lovenox Status and Disposition: Observation for continue antibiotics. Anticipate d/c home when medically stable , likely tomorrow.
[2018-03-03] MEDS ORDERED: Ketorolac INJ* 30 MG/ML 1 ML VIAL IV PUSH PRN (17:00)
[2018-03-03] MEDS ORDERED: Atorvastatin* 40 MG TAB PO SCH (17:00)
[2018-03-03] MEDS: Enoxaparin(*) 40 MG/0.4 ML SYR SUBCUT SCH (18:00)
[2018-03-03] MEDS: metFORMIN* 1,000 MG TAB PO SCH (22:30)
[2018-03-04] MEDS: Vancomycin(*) 1,000 MG in NS 0.9% 250 ML* 250 ML IVPB SCH (05:09)
[2018-03-04] MEDS: Insulin LISPRO* 1 UNITS UNIT SUBCUT SCH ×2 (08:41)
[2018-03-04] MEDS: Nicotine PATCH 21 MG/24 HR* PATCH TRANSDERM SCH (08:42)
[2018-03-04] MEDS: oxyCODONE/Acetamin 5/325 MG* TAB PO PRN (08:43)
[2018-03-04] MEDS: Lisinopril TAB* 10 MG PO SCH (08:43)
[2018-03-04] MEDS: Aspirin 81 mg CHEW TAB* 81 MG TAB.CHEW PO SCH (08:43)
[2018-03-04] MEDS: metFORMIN* 1,000 MG TAB PO SCH (08:43)
[2018-03-04] MEDS: Metoprolol Succinate XL TAB* 25 MG PO SCH (08:43)
[2018-03-04] MEDS: Cefepime 1 GM in Dextrose(*) 1 GM/50 ML BAG IV SCH (08:44)
[2018-03-04 08:50] VITALS: BP 142/85
[2018-03-04 11:14] LABS: ABS Basophils 0.1 10^3/ul (0-0.2); ABS Eosinophils 0.2 10^3/ul (0-0.6); ABS Lymphocytes 2.9 10^3/ul (1.0-4.8); ABS Monocytes 0.5 10^3/ul (0-0.8); ABS Neutrophils 3.7 10^3/ul (1.5-7.7); ABS Nucleated RBC 0 10^3/ul; Eosinophil % 2.5 % (0-6); Hematocrit 43 % (42-52); Hemoglobin 14.8 g/dl (14.0-18.0); Lymphocyte % 39.2 % (25-47); Mean Corpuscular HGB Conc 34 g/dl (31-36); Mean Corpuscular Hemoglobin 30 pg (27-31); Mean Corpuscular Volume 87 fL (80-94); Mean Platelet Volume 7.7 fL (7.4-10.4); Nucleated Red Blood Cells % 0.1; Platelet Count 228 10^3/ul (150-450); Red Blood Count 4.96 10^6/ul (4.00-5.40); Red Cell Distribution Width 13 % (10.5-15); White Blood Count 7.3 10^3/ul (3.5-10.8)
[2018-03-04 11:23] LABS: EGFR Non-African American 177.4 (>60)
[2018-03-04] MEDS ORDERED: Vancomycin Trough Check NOTE FOLLOW UP ONE (11:30)
[2018-03-04] MEDS ORDERED: Nicotine Patch Removal NOTE PATCH OFF SCH (21:00)
--- NOTE | 2018-03-05 10:40 | DS ---
AMENDED REPORT NOW INCLUDES COSIGNER DESIGNATION CC: Dr. Chevy Quick * DISCHARGE SUMMARY: DATE OF ADMISSION: 03/02/18 DATE OF DISCHARGE: 03/04/18 PRIMARY CARE PROVIDER: Dr. Chevy Quick. ATTENDING PHYSICIAN: Dr. Travon Valencia * (dictated by Anna Menjivar NP). PRIMARY DIAGNOSES: 1. Right leg cellulitis. 2. Elevated lactic acid. 3. Back and right hip pain. SECONDARY DIAGNOSES: 1. Diabetes mellitus, type 2. 2. Chronic systolic congestive heart failure. 3. Obstructive sleep apnea. 4. Morbid obesity. STUDIES WHILE IN THE HOSPITAL: 1. Chest x-ray on 03/02/18 personally reviewed shows no active cardiopulmonary disease, though image quality is poor due to body habitus. 2. Right hip and pelvis x-ray on 03/03/18 reads as no definite fracture was identified, although evaluation is limited due to body habitus. 3. Lumbar spine x-ray on 03/03/18 reads as no fracture of the lumbar spine is noted. 4. Right lower extremity venous Doppler study on 03/03/18 reads as no evidence of deep vein thrombosis. HISTORY OF PRESENT ILLNESS AND HOSPITAL COURSE: Mr. Quezada is a 42-year-old male with past medical history of diabetes mellitus type 2, CHF, obstructive sleep apnea, and morbid obesity, who presented to the emergency room on with complaints of low back and right hip pain along with right leg swelling and redness. Please see my history and physical for a complete summary of the events leading up to this hospitalization, but in short, the patient recently had 2 skin tags removed, one of which was located on the anterior right lower leg. That was approximately 5 weeks ago. About 2 days prior to admission, the patient noted a fever at home along with emesis. He began to have right back and right hip pain, although on the day of admission, the patient awoke with significant right leg swelling and redness and presented to the emergency room. In the emergency room, he was noted to have a normal white blood count. He did have an elevated lactic acid, which resolved with IV fluids. He had a chest x-ray as noted above. He was admitted by the hospitalist service for cellulitis. The patient was placed on cefepime and vancomycin, first doses were received in the emergency room. He was ruled out for DVT as noted above. The cellulitis was likely secondary to skin tag removal as there is still a small closed wound where the skin tag was removed. His white blood count remained normal. Vital signs remained stable. Erythema and edema gradually decreased. The patient continued to complain of right hip and back pain, for which the he was x-rayed and results are noted above. It is likely that his right hip and back pain are related to the pain associated in his right leg and likely decompensation. His blood glucose has been markedly elevated while in the hospital up to 400. His A1c was noted to be 10.7. He is quite hesitant to make any changes in his medications. As of the day of discharge, there is no further edema to the right lower extremity either is faint erythema. The patient denies pain on palpation. Mr. Quezada is stable for discharge today. Vital signs are as follows: Temp 97.8, heart rate 86, respiratory rate 20, oxygen saturation 95% on room air, blood pressure 142/85. DISCHARGE MEDICATIONS: New home medications: 1. Bactrim DS 800/160 mg 1 tab p.o. b.i.d. for 7 days. 2. Ibuprofen 800 mg p.o. q.6 hours p.r.n. pain. Continued home medications: 1. Albuterol MDI 2 puffs q.4 hours p.r.n. 2. Aspirin 81 mg p.o. daily. 3. Atorvastatin 40 mg p.o. daily. 4. Glimepiride 8 mg p.o. daily. 5. Lisinopril 10 mg p.o. daily. 6. Metformin 1000 mg p.o. b.i.d. 7. Metoprolol succinate 25 mg p.o. daily. Changed home medications: 1. Furosemide 20 mg p.o. daily (previously was 5 days per week). DISCHARGE PLAN: Mr. Quezada will be discharged home. Activity will be as tolerated. Diet will be diabetic. Medications are as noted above. The patient has been prescribed a 7-day course of Bactrim to complete a 10-day total course of antibiotic therapy. He has been prescribed prescription strength ibuprofen for continued right hip and back pain. At this point, he should be taking furosemide daily due to the amount of edema in his lower extremities. He should follow up with his primary care provider in 4 to 7 days. He has been instructed to return to the emergency room or nearest hospital for any worsening of symptoms, shortness of breath, lightheadedness, dizziness, chest discomfort, high fevers, chills, night sweats, loss of consciousness, or any other worrisome signs or symptoms. This is a summarized report of a complex medical history and hospital stay. For further details, please see the entire medical record. TIME SPENT: Approximately 45 minutes was spent on this discharge, greater than half of that time spent [id number] with the patient discussing discharge plans and instructions. ANNA MENJIVAR NP [id number]/[facility] #: [id number] AMIRAH
== END 2018-03-04 12:00 | disposition home or self-care (01) ==
LOC: ED 15:29 → INTOOBSV 18:03 → MED 18:03
PROVIDERS: ADMIT Student in an Organized Health Care Education/Training Program; ATTEND Internal Medicine
DX: L03.115 Cellulitis of right lower limb (principal); R74.0 Nonspecific elevation of levels of transaminase and lactic acid dehydrogenase [LDH]; R79.89 Other specified abnormal findings of blood chemistry; M54.9 Dorsalgia, unspecified; M25.551 Pain in right hip; E11.9 Type 2 diabetes mellitus without complications; I50.22 Chronic systolic (congestive) heart failure; E66.01 Morbid (severe) obesity due to excess calories; R11.10 Vomiting, unspecified; R50.9 Fever, unspecified; R60.0 Localized edema; Z79.01 Long term (current) use of anticoagulants; F17.210 Nicotine dependence, cigarettes, uncomplicated; Z79.82 Long term (current) use of aspirin; Z68.44 Body mass index [BMI] 60.0-69.9, adult
CPT/HCPCS: 36415; 71045; 72100; 80048; 80053; 83036; 83605; 83880; 84484; 85025; 85610; 85730; 86140; 87040; 93005; 96372; 96374; 96375; 96376; 99284; 99406; A9270-GY; G0378; J0692; J1650; J1885; J3370

== ENCOUNTER 2019-03-29 08:35 | Emergency (ER) | payer OTHER ==
[2019-03-29 08:50] VITALS: BP 119/78
--- NOTE | 2019-03-29 10:46 | UC ---
Eye Complaint HPI - HPI Summary HPI Summary: Patient is a 43yo male presenting with R upper eyelid redness, swelling, irritation, and "gritty feeling" since last night. Patient states he had mild green crusting of the eyelid this morning when he woke up but none since. Denies vision changes. Denies redness of the eye. Denies contact lens use. Denies pain with movement of eye. Notes feeling of discomfort of the lid when he blinks. Patient states he has never had this before. Denies n/v. Denies fever and chills. - History of Current Complaint Chief Complaint: UCSkin Stated Complaint: EYE COMPLAINT Hx Obtained From: Patient Onset/Duration: Gradual Onset, Lasting Days Timing: Constant Severity Currently: Moderate Pain Intensity: 6 Pain Scale Used: 0-10 Numeric - Allergies/Home Medications Allergies/Adverse Reactions: Allergies Allergy/AdvReac Type Severity Reaction Status Date / Time No Known Drug Allergies Allergy See Comment Verified 03/29/19 08:42 [place] Allergy Severe Swelling Uncoded 03/29/19 08:42 PMH/Surg Hx/FS Hx/Imm Hx Endocrine History: Diabetes, Dyslipidemia Cardiovascular History: Hypertension Other History Of: Anticoagulant Therapy Negative For: HIV, Hepatitis B, Hepatitis C - Surgical History Surgical History: None - Family History Known Family History: Positive: Cardiac Disease, Hypertension, Diabetes, Respiratory Disease, Seizure Disorder - Social History Alcohol Use: None Substance Use Type: Marijuana Substance Use Comment - Amount & Last Used: occasional Smoking Status (MU): Heavy Every Day Tobacco Smoker Type: Cigarettes Amount Used/How Often: avg. 1 PPD Household Exposure Type: Cigarettes - Immunization History Most Recent Influenza Vaccination: never Most Recent Tetanus Shot: doesn't remember Most Recent Pneumonia Vaccination: 2017 Review of Systems All Other Systems Reviewed And Are Negative: No Constitutional: Positive: Negative. Negative: Fever, Chills Eyes: Positive: Other - R upper eyelid swelling, redness, and crusting. Negative: Blurred Vision, Diplopia, Drainage, Eye Redness, Photophobia Respiratory: Positive: Negative. Negative: Shortness Of Breath Cardiovascular: Positive: Negative. Negative: Chest Pain Gastrointestinal: Positive: Negative. Negative: Abdominal Pain, Vomiting, Diarrhea, Nausea Genitourinary: Positive: Negative Musculoskeletal: Positive: Arthralgia - R hip. Negative: Decreased ROM, Edema Neurological: Positive: Negative. Negative: Paresthesia, Numbness Physical Exam Triage Information Reviewed: Yes Appearance: Well-Nourished, Pain Distress Vital Signs: Initial Vital Signs Temp 97.9 F 03/29/19 08:44 Pulse 96 03/29/19 08:44 Resp 18 03/29/19 08:44 BP 119/78 03/29/19 08:44 Pulse Ox 96 03/29/19 08:44 Vital Signs Reviewed: Yes Eye Exam: Other - PERRLA. EOM intact Eyes: Positive: Conjunctiva Clear, Other: - mild edema and erythema noted of R upper lid margin. white plugs of meibomian glands present. minimal crusting noted. Negative: Discharge ENT: Positive: Hearing grossly normal Neck: Positive: Supple Respiratory Exam: Normal Respiratory: Positive: Lungs clear, Normal breath sounds Cardiovascular Exam: Normal Cardiovascular: Positive: RRR Neurological: Positive: Alert Psychological: Positive: Age Appropriate Behavior Eye Complaint Course/Dx - Course Course Of Treatment: Discussed blepharitis with patient. Instructed to use antibiotic ointment at night before bed x 1 week. Instructed to apply warm compresses and gently massage as well. Instructed to follow up with pcp if symptoms persist. Patient voiced understanding and agreed with treatment plan. - Differential Dx/Diagnosis Provider Diagnosis: Blepharitis of eyelid of right eye Discharge ED - Sign-Out/Discharge Documenting (check all that apply): Patient Departure All imaging exams completed and their final reports reviewed: No Studies - Discharge Plan Condition: Stable Disposition: HOME Prescriptions: Erythromycin OPHTH.OINT* [Ilotycin OPHTH.OINT*] 1 applic RIGHT EYE BEDTIME 7 Days #1 ophth.oint Patient Education Materials: Blepharitis (ED) Referrals: Abdelrahman ROE,Chevy Garcia [Primary Care Provider] - If Needed Additional Instructions: As discussed, place the antibiotic ointment along the right eyelid margin once daily before bedtime. Apply warm compresses and gently massage the eyelid 2-3 times daily. Return or follow up with your PCP if symptoms if symptoms worsen or do not resolve within 7 days. - Billing Disposition and Condition Condition: STABLE Disposition: Home - Attestation Statements Provider Attestation: I was available for consult. This patient was seen by the SANTY. The patient was not presented to, seen by, or examined by me. -Jovan
== END 2019-03-29 09:12 | disposition home or self-care (01) ==
LOC: UCEAST 08:35
DX: H01.001 Unspecified blepharitis right upper eyelid (principal); E11.9 Type 2 diabetes mellitus without complications; I10 Essential (primary) hypertension; F17.210 Nicotine dependence, cigarettes, uncomplicated; M25.551 Pain in right hip
CPT/HCPCS: 99212; G0463